=== PATIENT | male | born 1995 | race African-American/Black ===

== ENCOUNTER 2020-01-10 08:27 | Emergency (ER) | payer OTHER ==
[~2020-01-10] VITALS: Ht 180.3 cm; Wt 104.5 kg
[2020-01-10] MEDS ORDERED: NEXI40CA PO (08:45)
--- NOTE | 2020-01-10 09:27 | REP ---
Clinical: Acute chest pain . Comparison: None . Findings: The mediastinum and cardiac silhouette are stable and within normal limits for portable technique. The lung cervantes are clear without acute consolidation, effusion, or pneumothorax. Skeletal structures are intact. Impression: No acute cardiopulmonary process appreciated. Electronically Signed by Rock Adkins MD 01/10/2020 09:18 A
[2020-01-10 09:29] LABS: BASO # 0.1 10^3/uL (0.0-0.2); BASO % 0.6 % (0.0-1.0); EOS % 0.2 % (0.0-3.0); HEMATOCRIT 44.6 % (42.0-52.0); HEMOGLOBIN 15.3 g/dl (13.5-17.5); LYMPH # 2.1 10^3/uL (1.5-5.0); LYMPH % 21.9 % (24.0-44.0); MEAN CORPUSCULAR HEMOGLOBIN 27.8 pg (27.0-33.0); MEAN CORPUSCULAR HGB CONC 34.3 g/dl (32.0-36.5); MEAN CORPUSCULAR VOLUME 81.1 fl (80.0-96.0); MONO # 1.3 10^3/uL (0.0-0.8); MONO % 13.1 % (0.0-5.0); NEUTROPHILS # 6.2 10^3/uL (1.5-8.5); NEUTROPHILS % 63.9 % (36.0-66.0); PLATELET COUNT, AUTOMATED 269 10^3/uL (150-450); WHITE BLOOD COUNT 9.7 10^3/uL (4.0-10.0)
[2020-01-10 10:09] LABS: ALBUMIN 4.1 GM/DL (3.2-5.2); ALT/SGPT 35 U/L (12-78); BILIRUBIN,DIRECT 0.1 MG/DL (0.0-0.2); BILIRUBIN,TOTAL 0.4 MG/DL (0.2-1.0); BLOOD UREA NITROGEN 7 MG/DL (7-18); CALCIUM LEVEL 8.6 MG/DL (8.5-10.1); CARBON DIOXIDE LEVEL 27 MEQ/L (21-32); CHLORIDE LEVEL 112 MEQ/L (98-107); CK-MB VALUE MASS 3.7 NG/ML (<3.6); CPK CREATINE PHOSPHOKINASE 765 U/L (39-308); CREATININE FOR GFR 1.11 MG/DL (0.70-1.30); ETHYL ALCOHOL (ETHANOL) 0.242 % (0.000-0.010); FREE T4 1.14 NG/DL (0.76-1.46); GLOMERULAR FILTRATION RATE > 60.0 (>60); GLUCOSE, FASTING 102 MG/DL (70-100); LIPASE 141 U/L (73-393); MB/CK RELATIVE INDEX 0.48 (< OR =4); POTASSIUM SERUM 3.8 MEQ/L (3.5-5.1); SODIUM LEVEL 145 MEQ/L (136-145); TOTAL PROTEIN 7.4 GM/DL (6.4-8.2); TROPONIN I < 0.02 NG/ML (< 0.10)
[2020-01-10 11:46] VITALS: BP 152/91
--- NOTE | 2020-01-11 07:09 | ECGEPIP ---
[facility] - ED Test Date: 2020-01-10 Pat Name: HENNA RADFORD Department: Room: - Gender: Male Immigration Manager: jarod perez : 1995 Requested By: Saud Carlson Order Number: [id number] Reading MD: Prasanth Rivera Measurements Intervals [place] Rate: 84 P: 49 WV: 177 QRS: 47 QRSD: 90 T: -19 QT: 345 QTc: 408 Interpretive Statements SINUS RHYTHM Nonspecific T wave abnormality Comparison tracing not on file Electronically Signed on 01-11-2020 7:09:40 EDT by Prasanth Rivera
== END 2020-01-10 11:55 | disposition home or self-care (01) ==
LOC: M ED 08:27 → EDBD 08:27 → M ED 11:55
DX: F10.129 Alcohol abuse with intoxication, unspecified (principal); R06.02 Shortness of breath
CPT/HCPCS: 36415; 71045; 80048; 80076; 82550; 82553; 83690; 84439; 84443; 84484; 85025; 93005; 93041; 94760; 99285; G0480

== ENCOUNTER 2020-07-24 18:17 | Emergency (ER) | payer OTHER ==
[~2020-07-24] VITALS: Ht 177.8 cm; Wt 104.5 kg
[~2020-07-24 18:17] MED LIST: NEXI40CA PO
--- OUTSIDE RECORDS SUMMARY | 2020-07-24 18:22 | CCD ---
Author Author [facility] Organization [facility] Address Unknown Phone Unavailable Care Team Providers [facility] Recruiting Coordinator Name Role Phone NAIDA, Sherin CABRERA MD Unavailable Unavailable ANTECOL, Sherin CABRERA MD Unavailable Unavailable ANTECOL, Sherin CABRERA MD Unavailable Unavailable ANTECOL, Sherin CABRERA MD Unavailable Unavailable ANTECOL, Sherin CABRERA MD Unavailable Unavailable ANTECOL, Sherin CABRERA MD Unavailable Unavailable ANTECOL, Sherin CABRERA MD Unavailable Unavailable ANTECOL, Sherin CABRERA MD Unavailable Unavailable ANTECOL, Sherin CABRERA MD Unavailable Unavailable ANTECOL, Sherin CABRERA MD Unavailable Unavailable ANTECOL, Sherin CABRERA MD Unavailable Unavailable ANTECOL, Sherin CABRERA MD Unavailable Unavailable ANTECOL, Sherin CABRERA MD Unavailable Unavailable ANTECOL, Sherin CABRERA MD Unavailable Unavailable ANTECOL, Sherin CABRERA MD Unavailable Unavailable ANTECOL, Sherin CABRERA MD Unavailable Unavailable ANTECOL, Sherin CABRERA MD Unavailable Unavailable ANTECOL, Sherin CABRERA MD Unavailable Unavailable ANTECOL, Sherin CABRERA MD Unavailable Unavailable ANTECOL, Sherin CABRERA MD Unavailable Unavailable ANTECOL, Sherin CABRERA MD Unavailable Unavailable ANTECOL, Sherin CABRERA MD Unavailable Unavailable ANTECOL, Sherin CABRERA MD Unavailable Unavailable ANTECOL, Sherin CABRERA MD Unavailable Unavailable ANTECOLSherin MD Unavailable Unavailable ANTECOL, Sherin CABRERA MD Unavailable Unavailable ANTECOLSherin MD Unavailable Unavailable ANTECOL, Sherin CABRERA MD Unavailable Unavailable ANTECOL, Sherin CABRERA MD Unavailable Unavailable ANTECOL, Sherin CABRERA MD Unavailable Unavailable ANTECOL, Sherin CABRERA MD Unavailable Unavailable ANTECOL, Sherin CABRERA MD Unavailable Unavailable ANTECOL, Sherin CABRERA MD Unavailable Unavailable ANTECOL, Sherin CABRERA MD Unavailable Unavailable ANTECOL, Sherin CABRERA MD Unavailable Unavailable ANTECOL, Sherin CABRERA MD Unavailable Unavailable ANTECOL, Sherin CABRERA MD Unavailable Unavailable ANTECOL, Sherin CABRERA MD Unavailable Unavailable ANTECOL, Sherin CABRERA MD Unavailable Unavailable ANTECOL, Sherin CABRERA MD Unavailable Unavailable ANTECOL, Sherin CABRERA MD Unavailable Unavailable ANTECOL, Sherin CABRERA MD Unavailable Unavailable ANTECOL, Sherin CABRERA MD Unavailable Unavailable ANTECOL, Sherin CABRERA MD Unavailable Unavailable ANTECOL, Sherin CABRERA MD Unavailable Unavailable ANTECOL, Sherin CABRERA MD Unavailable Unavailable ANTECOL, Sherin CABRERA MD Unavailable Unavailable ANTECOL, Sherin CABRERA MD Unavailable Unavailable ANTECOL, Sherin CABRERA MD Unavailable Unavailable ANTECOL, Sherin CABRERA MD Unavailable Unavailable ANTECOL, Sherin CABRERA MD Unavailable Unavailable ANTECOL, Sherin CABRERA MD Unavailable Unavailable ANTECOL, Sherin CABRERA MD Unavailable Unavailable ANTECOL, Sherin CABRERA MD Unavailable Unavailable ANTECOL, Sherin CABRERA MD Unavailable Unavailable SARSFIELD, Crystal SALGADO MD Unavailable Unavailable SARSFIELD, Crystal SALGADO MD Unavailable Unavailable SARSFIELD, Crystal SALGADO MD Unavailable Unavailable SARSFIELD, Crystal SALGADO MD Unavailable Unavailable SARSFIELD, Crystal SALGADO MD Unavailable Unavailable SARSFIELD, Crystal SALGADO MD Unavailable Unavailable SARSFIELD, Crystal SALGADO MD Unavailable Unavailable SARSFIELD, Crystal SALGADO MD Unavailable Unavailable SARSFIELD, Crystal SALGADO MD Unavailable Unavailable ALIASES , DEFAULT / GENERIC / UNKNOWN PROVIDER * Unavailable Unavailable ALIASES , DEFAULT / GENERIC / UNKNOWN PROVIDER * Unavailable Unavailable ALIASES , DEFAULT / GENERIC / UNKNOWN PROVIDER * Unavailable Unavailable ALIASES , DEFAULT / GENERIC / UNKNOWN PROVIDER * Unavailable Unavailable ALIASES , DEFAULT / GENERIC / UNKNOWN PROVIDER * Unavailable Unavailable ALIASES , DEFAULT / GENERIC / UNKNOWN PROVIDER * Unavailable Unavailable ALIASES , DEFAULT / GENERIC / UNKNOWN PROVIDER * Unavailable Unavailable ALIASES , DEFAULT / GENERIC / UNKNOWN PROVIDER * Unavailable Unavailable ALIASES , DEFAULT / GENERIC / UNKNOWN PROVIDER * Unavailable Unavailable ALIASES , DEFAULT / GENERIC / UNKNOWN PROVIDER * Unavailable Unavailable ALIASES , DEFAULT / GENERIC / UNKNOWN PROVIDER * Unavailable Unavailable ALIASES , DEFAULT / GENERIC / UNKNOWN PROVIDER * Unavailable Unavailable ALIASES , DEFAULT / GENERIC / UNKNOWN PROVIDER * Unavailable Unavailable ALIASES , DEFAULT / GENERIC / UNKNOWN PROVIDER * Unavailable Unavailable ALIASES , DEFAULT / GENERIC / UNKNOWN PROVIDER * Unavailable Unavailable ALIASES , DEFAULT / GENERIC / UNKNOWN PROVIDER * Unavailable Unavailable ALIASES , DEFAULT / GENERIC / UNKNOWN PROVIDER * Unavailable Unavailable ALIASES , DEFAULT / GENERIC / UNKNOWN PROVIDER * Unavailable Unavailable ALIASES , DEFAULT / GENERIC / UNKNOWN PROVIDER * Unavailable Unavailable ALIASES , DEFAULT / GENERIC / UNKNOWN PROVIDER * Unavailable Unavailable ALIASES , DEFAULT / GENERIC / UNKNOWN PROVIDER * Unavailable Unavailable ALIASES , DEFAULT / GENERIC / UNKNOWN PROVIDER * Unavailable Unavailable ALIASES , DEFAULT / GENERIC / UNKNOWN PROVIDER * Unavailable Unavailable ALIASES , DEFAULT / GENERIC / UNKNOWN PROVIDER * Unavailable Unavailable ALIASES , DEFAULT / GENERIC / UNKNOWN PROVIDER * Unavailable Unavailable ALIASES , DEFAULT / GENERIC / UNKNOWN PROVIDER * Unavailable Unavailable ALIASES , DEFAULT / GENERIC / UNKNOWN PROVIDER * Unavailable Unavailable ALIASES , DEFAULT / GENERIC / UNKNOWN PROVIDER * Unavailable Unavailable ALIASES , DEFAULT / GENERIC / UNKNOWN PROVIDER * Unavailable Unavailable ALIASES , DEFAULT / GENERIC / UNKNOWN PROVIDER * Unavailable Unavailable ALIASES , DEFAULT / GENERIC / UNKNOWN PROVIDER * Unavailable Unavailable ALIASES , DEFAULT / GENERIC / UNKNOWN PROVIDER * Unavailable Unavailable ALIASES , DEFAULT / GENERIC / UNKNOWN PROVIDER * Unavailable Unavailable ALIASES , DEFAULT / GENERIC / UNKNOWN PROVIDER * Unavailable Unavailable ALIASES , DEFAULT / GENERIC / UNKNOWN PROVIDER * Unavailable Unavailable ALIASES , DEFAULT / GENERIC / UNKNOWN PROVIDER * Unavailable Unavailable ALIASES , DEFAULT / GENERIC / UNKNOWN PROVIDER * Unavailable Unavailable ALIASES , DEFAULT / GENERIC / UNKNOWN PROVIDER * Unavailable Unavailable ALIASES , DEFAULT / GENERIC / UNKNOWN PROVIDER * Unavailable Unavailable ALIASES , DEFAULT / GENERIC / UNKNOWN PROVIDER * Unavailable Unavailable ALIASES , DEFAULT / GENERIC / UNKNOWN PROVIDER * Unavailable Unavailable ALIASES , DEFAULT / GENERIC / UNKNOWN PROVIDER * Unavailable Unavailable ALIASES , DEFAULT / GENERIC / UNKNOWN PROVIDER * Unavailable Unavailable ALIASES , DEFAULT / GENERIC / UNKNOWN PROVIDER * Unavailable Unavailable ALIASES , DEFAULT / GENERIC / UNKNOWN PROVIDER * Unavailable Unavailable ALIASES , DEFAULT / GENERIC / UNKNOWN PROVIDER * Unavailable Unavailable HALFMAN, HENRI Unavailable Unavailable HALFMAN, HENRI Unavailable Unavailable HALFMAN, HENRI Unavailable Unavailable HALFMAN, HENRI Unavailable Unavailable Re-disclosure Warning The records that you are about to access may contain information from federally-assisted alcohol or drug abuse programs. If such information is present, then the following federally mandated warning applies: This information has been disclosed to you from records protected by federal confidentiality rules (42 CFR part 2). The federal rules prohibit you from making any further disclosure of this information unless further disclosure is expressly permitted by the written consent of the person to whom it pertains or as otherwise permitted by 42 CFR part 2. A general authorization for the release of medical or other information is NOT sufficient for this purpose. The Federal rules restrict any use of the information to criminally investigate or prosecute any alcohol or drug abuse patient.The records that you are about to access may contain highly sensitive health information, the redisclosure of which is protected by Article 27-F of the [facility] Public Health law. If you continue you may have access to information: Regarding HIV / AIDS; Provided by facilities licensed or operated by the [facility] Office of Mental Health; or Provided by the [facility] Office for People With Developmental Disabilities. If such information is present, then the following [facility] mandated warning applies: This information has been disclosed to you from confidential records which are protected by state law. State law prohibits you from making any further disclosure of this information without the specific written consent of the person to whom it pertains, or as otherwise permitted by law. Any unauthorized further disclosure in violation of state law may result in a fine or group home sentence or both. A general authorization for the release of medical or other information is NOT sufficient authorization for further disc losure. Allergies and Adverse Reactions Type Description Substance Reaction Status Data Source(s ) Drug Class NO KNOWN ALLERGIES NO KNOWN ALLERGIES [facility] Family History Family Member Name Family Member Gender Family Member Status Date o f Status Description Data Source(s) Unknown Female Problem [facility] ([facility]) Encounters Encounter Providers Location Date Indications Data Source(s ) Outpatient Attender: RICK PASCAL MD Main Office 02/16/2020 08:30:00 AM EDT [facility] ([facility]) Emergency Attender: DEFAULT / GENE POLO / UNKNOWN PROVIDER ALIASES Attender: DAMIAN LUIS MDReferrer: DAMIAN LUIS MD [id number] 01/02/2020 09:40:17 PM EDT - 01/03/2020 12:54:00 AM EDT Palpitations [facility] Palpitations Patient discharged. Emergency Attender: HENRI CHANDLERReferrer: HENRI RICO [id number]-GEM 09/06/2019 09:32:43 PM EDT - 09/07/2019 12:49:00 AM EDT Cough [facility] Cough Patient discharged. Insurance Providers Payer name Policy type / Coverage type Policy ID Covered green party ID Covered green party's relationship to macario Policy Macario Plan Information [facility] HUMANA [id number] O UNAVAILABLE UNAVAILA BLE U [id number] Self [id number] EXCELLUS I [id number] Self [id number] BCBS Child Health Plus Health Maintenance Organization (HMO) Family Dependent [facility] Self [id number] Problems, Conditions, and Diagnoses Code Display Name Description Problem Type Effective Dates Data Source(s) 858448499 Counseling about tobacco use Counseling about tobacco use Problem 02/16/2020 12:00:00 AM EDT [facility] [id number] Tobacco user Tobacco user Problem 02/16/2020 12:00:00 A M EDT [facility]) [id number] Palpitations Palpitations Problem 02/16/2020 12:00:00 A M EDT [facility]) [id number] Elevated blood-pressure reading without diagnosis of hypertension Elevated blood-pressure reading without diagnosis of hypertension Problem 02/16/2020 12:00:00 AM EDT [facility]) [id number] Dietary management surveillance Dietary manageme nt surveillance Problem 02/16/2020 12:00:00 AM EDT [facility] [id number] Obesity Obesity Problem 02/16/2020 12:00:00 AM ED T [facility]) [id number] Chest pain Chest pain Problem 02/16/2020 12:00:00 AM ED T [facility]) R00.2 Palpitations Palpitations Diagnosis 01/02/2020 09:40:[address] [facility] card eval card eval Diagnosis 01/02/2020 09:40:17 PM ED [facility] R05 Cough Cough Diagnosis 09/06/2019 09:32:43 PM ED [facility] Fever Fever Diagnosis 09/06/2019 09:32:43 PM ED [facility] Surgeries/Procedures Procedure Description Date Indications Data Source(s) XTRNL PT ACTIVATED ECG RECORD MONITOR 30 DAYS 03/10/20 20 12:00:00 AM EDT [facility] XTRNL PT ACTIVTD ECG DWNLD 30 DAYS PHYS R&I 03/10/2020 12:00:00 AM EDT [facility]) Ambulatory Blood Pressure Monitoring;Recording,Scanning,Inte r,RPT 03/01/2020 12:00:00 AM EDT [facility] ECG ROUTINE ECG W/LEAST 12 LDS W/I&R 02/16/2020 12:00: 00 AM EDT [facility]) [facility]H COVID-19 PCR COVID-19 PCR Routine 01/02/2020 11:31 PM EDT 01/03/2020 03:31:00 AM EDT [facility] TROPONIN QUANTITATIVE POCT ISTAT TROPONIN Routine 01/02/2020 11:30 PM EDT 01/03/2020 03:30:00 AM EDT [facility] XR CHEST FRONTAL ONLY 87497 XR CHEST FRONTAL ONLY 92992 STAT 01/02/2020 11:01 PM EDT 01/03/2020 03:01:00 AM EDT [facility] COMPREHENSIVE METABOLIC PANEL METABOLIC PANEL, COMPREHENSIVE ST AT 01/02/2020 10:34 PM EDT 01/03/2020 02:34:00 AM EDT [facility] BLOOD COUNT COMPLETE AUTO&AUTO DIFRNTL WBC COUNT CBC AND DIFFER ENTIAL STAT 01/02/2020 10:34 PM EDT 01/03/2020 02:34:00 AM EDT [facility] THYROID STIMULATING HORMONE TSH TSH STAT 01/02/2020 10:34 PM EDT 01/03/2020 02:34:00 AM EDT [facility] EKG ED PHYSICIAN INTERPRETATION EKG ED PHYSICIAN INTERPRETATION Routine 01/02/2020 9:40 PM EDT 01/03/2020 01:40:56 AM EDT [facility] EKG 12-LEAD - CMAXX REPORT EKG 12-LEAD - CMAXX REPORT 01/02/2020 9:17 PM EDT 01/03/2020 01:17:48 AM EDT [facility] EKG 12-LEAD EKG 12-LEAD STAT 01/02/2020 9:17 PM EDT 01/03/2020 01:17:48 AM EDT [facility] EKG ED PHYSICIAN INTERPRETATION EKG ED PHYSICIAN INTERPRETATION Routine 09/06/2019 11:00 PM EDT 09/07/2019 03:00:03 AM EDT [facility] XR CHEST FRONTAL ONLY 86218 XR CHEST FRONTAL ONLY 97510 STAT 09/06/2019 10:05 PM EDT 09/07/2019 02:05:43 AM EDT [facility] EKG 12-LEAD - CMAXX REPORT EKG 12-LEAD - CMAXX REPORT 09/06/2019 9:59 PM EDT 09/07/2019 01:59:22 AM EDT [facility] EKG 12-LEAD EKG 12-LEAD STAT 09/06/2019 9:59 PM EDT 09/07/2019 01:59:[address] [facility] BLOOD COUNT COMPLETE AUTO&AUTO DIFRNTL WBC COUNT CBC AND DIFFER ENTIAL STAT 09/06/2019 9:53 PM EDT 09/07/2019 01:53:[address] [facility] TROPONIN QUANTITATIVE TROPONIN T STAT 09/06/2019 9:53 PM EDT 09/07/2019 01:53:00 AM EDT [facility] BASIC METABOLIC PANEL CALCIUM TOTAL BASIC METABOLIC PANEL STAT 09/06/2019 9:53 PM EDT 09/07/2019 01:53:00 AM EDT [facility] Results ID Date Data Source [id number] 01/18/2020 03:58:00 PM EDT [facility] ([facility] Name Value Range Interpretation Code Description Data Clarice rce(s) Supporting Document(s) White Blood Count 7.10 [facility] Platelets 274 [facility] Red Blood Count 6.07 [facility] Hemoglobin 17.0 [facility] ([facility]) Hematocrit 51.3 [facility] ([facility]) ID Date Data Source [id number] 01/18/2020 03:58:00 PM EDT [facility] Name Value Range Interpretation Code Description Data Clarcie rce(s) Supporting Document(s) Cholesterol 198 0-200 [facility] ([facility]) Triglycerides 48 40-200 [facility] HDL 71 40-92 [facility] Cholesterol in LDL [Mass/volume] in Serum or Plasma by calculation 10 5.0 [facility] ([facility]) Chol/HDL Ratio 2.79 [facility] ([facility]) ID Date Data Source [id number] 01/18/2020 03:58:00 PM EDT [facility] Name Value Range Interpretation Code Description Data Clarice rce(s) Supporting Document(s) Thyroid Stimulating Hormone 2.250 [facility] ([facility]) ID Date Data Source [id number] 01/18/2020 03:58:00 PM EDT [facility] Name Value Range Interpretation Code Description Data Clarice rce(s) Supporting Document(s) Albumin [Mass/volume] in Serum or Plasma 4.4 [facility] ([facility]) Carbon dioxide, total [Moles/volume] in Serum or Plasma 24.4 [facility] ([facility]) Calcium [Mass/volume] in Serum or Plasma 9.7 [facility] ([facility]) Alanine aminotransferase [Enzymatic activity/volume] in Serum or Pl asma 25 [facility] ([facility]) Chloride [Moles/volume] in Serum or Plasma 104 [facility] ([facility]) Alkaline phosphatase [Enzymatic activity/volume] in Serum or Plasma 5 3 [facility] ([facility]) Potassium [Moles/volume] in Serum or Plasma 4.50 [facility] ([facility]) Protein [Mass/volume] in Serum or Plasma 7.5 [facility] ([facility]) Sodium 141 [facility] Aspartate aminotransferase [Enzymatic activity/volume] in Serum or Plasma 15 [facility] ([facility]) Creatinine For GFR 1.36 [facility] Urea nitrogen [Mass/volume] in Serum or Plasma 13 [facility] ([facility]) Glucose 97 70-105 [facility]) ID Date Data Source [id number] 01/04/2020 09:14:22 AM EDT [facility] Name Value Range Interpretation Code Description Data Clarice rce(s) Supporting Document(s) ED Provider Note [facility] [id number]/[id number] lbm [file] [id number] ID Date Data Source [id number] 01/03/2020 08:46:56 AM EDT [facility] Name Value Range Interpretation Code Description Data Clarice rce(s) Supporting Document(s) [facility] EZIFIz8fEjTULbWhh8EtFsZgHGTpBL5hojt5F5J0bSRtR4OzbJXqt6kvQ4VoI5ZwCZLqDLUBIE6LcWDp jb2 [file] vR0cXv+K2hP9MEV/5z9pcP5PUn6P6rm++X0Y/AMX79f3w/v/lT3+dzd21kqu106a+vytR3+heidy/nTLX3 T+DJJzD1le9Ntq1pV72+pBem41YZG3yJkz00YrpeT2 z/0hDTro5QxcK9bb3565Soz7oyaf1WkOXncnu8QTsr+af/FHxxd/DUST COLLECTOR ATTENDANT/kbW134TwvqZlaH/OS1rU01BAa P2m34puuu2+tSPNSjvyuI7/vmG791b103/sFAr24rTkjnalYEouE7/BHjr2d8uDq3H3HTrjdK32hrPE4 nW/0/iY2yJyUwJqFcIyVJKbjAgc5Nz94fiCZ2PEArD FNOq43SVHa7QBABbuWQTqFNEzLMPqQUZbA2ICfhV/NTdd7u+l6b8d+Ncd+Ncd+Ncd+Ncd+Ncd+NUd+15 UcipD0IwgpD67Xjm284Gwo+9Uc+2H6KDrA45m2T24a3+Z7blBOAsfDJ0Z7j2FE3Twiy2hiqnJMawT8sB 901/lGv/aX8a3gxvMpFUlUFD46mXsgm+Z3y3jAiTdP FIbyZphVOmtH5Wtoa735G0KC0rM3OCqUuYs+gWm33oVz5fubS23izkzmjOwirJnegSxf5MsCKA9ioz/V yngfjhUwp0C5F309+jmIjvz76ieCP13Wjk670Mre+W5BodcEkWB0clOWhij+B0APCecGVdqHPehQ2+cA S26M6IrEWiq6RqtP5ZI6gkatRMByGtxixFULOSdJQs BIsiJOOCJJ2Wa00WaVf93jQKP3Wh/rW/OYvjtYBzMwAxtgA+dCi3fWMZNKVF71tViC7oz8HmIBw650wM r2zm5P2sAc/6RbKnCdl16/Dnpqeoz/1vR4/x7tkejxM9dqksfO8dRTZvRv9BMoWDREIZvoTrvqKaBjJn wVRysX3n66q3wRRAmKNaqQQ0dr/ExDYQ5NbDltYQmP ZKaOVjh6yR5KALWM3mu42U57yTdox2h5nkKHWTUYio0K3LwMS6d2FhsQsu/YM/bp4ke3wd6JIlTykqbv +7FwNd2P7NgzT4oZIGudlkpJDp1T8+ZWIZ9zG8v6+wnWe2nTPjdkB8mIo0AP0wfuS7xvl4fKR1bdIqld M7navwzr7kwWwf0Zc5NsnzaoPsv5zsgqtf6XN1719L [file] A65qYcR8T3k52wuh87u/7665+v3ZsvO/wzGZ/99L0y66nu+x9+/e0/vf36+x8+vvv4/h6v93897wt6w7 9+/e1Xv3n/1PbdCb2Ai56/+ObdF79+z6e62S0gT4196re4X+8/fvjq/W/jne2OhJ3j2h1vI8l4n99liH Cx3nX5y/7h7cOX//Txy2/e/vGrj1++Jefdh+R99e6v /PH9Yr7/+Wiigx9l+/eff/Wrrz5/+/j2j+9+8/7t3S+//e51g1+/7vSv/KGUjPtXb+8///uf/mwV57p/ 9o9fvv/97yQQr3j05j5BzElzZ0x26roa7a/+lrmQweHCEpt53Y64jL1j5S7+hPr7b+/asXqwg6pNd5g3 7d+/f93uD2+/+v3G557kT/2yzy9zp/n5n//0r7//yx 9//Je3//Yfb7/71ontB6f9/+3ei7958to/brog5nxfjj/67Z//i8x//pu3P//ysroG8UjvpnFm6e1w4d bum//5LSEp9d0jjL/84y/+kXeWSTmS9pC/5KbGsj9Ltke932j/DwWwCK8q/l75kgH2TzD4y4XmdmkW1t EM9+Mc2bAHCkW09zbzpM6uX3IX5mNm/+DDj//641/+ ufG75jubY+8+fvzy/T++/fDuww+/lntzY14ypg/nL4+uf3n/gWw0C8Wcg1hw+xnIv/fyar9APe2JsgaH 0hjQc46481//0qctpxewN53n0ijz8M5H80k/+zYh2rMb9SOvU8po3Dmp1y0/p3//8S//57d/+Oob16e1 7VG16ily/tOzb+jrKfiy6v//+3Xvv//zn356+lWW7i ndw6V26V91/MU/jGkgH3xmRgtm/dP833BjfcrpIIIbKU4g6w+iXjH4Cy/ftZ/e1ca+//xCj604++3//f Hf/fSQmb7krV+/+/7Dz+9KIa85+HpT/cdf/vlvfvLr/Ry++e0fPnm+8Qn6yz/89nf/6yd/s8J64Fh/+u nfPjPGrj/8t//8t4/8Xsj6y3/87P03P/edJ7nUv//8 i63dYtS71kQOtxZj+vF3/+NPv//d73/7p89+5jX22443p39FgaUlg/x+tQDJ3//bv7+V7F102heP54/4 +Pb9u6++xY/j4nh1E1C+fv/b//7jm7z9+V/eaKIyOoqQrL92y/+u3L5m0f7TP31b/76o6vHFE+27D1+8 //VgxJ43KX9eogF8td1/Enuj334ucgimgLc95r7Yc3 uRxVbrbnXdlAGnAU1GOZ4rn0SqXgP0CIKkf0LgDKbuMVx4yIIsDWentuOuu0PhjbbyP3Nyl0JuAlRkYJ XuLqBrPkd7PPTcOiA7pEPgCvDkULZyD2JeOUHjCxV4SnRpKPKPSJ5KPTQdcpDaTqVkRXP+JnScTM9elp izWVCmf2BrUVzsFOvoWAEoQ4R3hQuxRBWbL4MgcY19 MOAwG6PouqG9JCU1TDYrMpJnJTKmaVErFEPmZAL+VmQwOZ7zmwvbMFGni6EfXOyoQQW3nJ2aUVdVKETZ XKbLKCrrRcC2i84iofHMRYRiBPDcOI3JnzRylSkibsNnbSVoZRF7XjYxMAP4LEEoBXG4OENMVMYiVAMw PEOgODDpN1TnmFooGZeAZLTXZVuIERqzJfTyq9T6PW PhzwAVBT3NYNKRGyxbLTMGNoRzJojjCGBhNXLaZ5LqznDhpLGnIIPMSNmcZjkjHVMryS7tfFmgZ8CrPH Q8z2SgDG0DQ5SnPQJyALEYUBY8d0InSMUismrxfbzoMsUgMMWwYVVcZEAvRA0Fwu9cwXUjjvLpZRRZMZ ptNiqbFO2qsUledxczM4KilQVmKBB+EaWfYR2okw4+ YuEvKVNoEbj2AXXfLAtpNJKxALWwTEJqQ2sjAUFgBnEjIYUpTyWlDS9Xs9HygTSbUp0zgmKkLmgDvZSh QinjJBWeBSLpMDUhJaYITMMqCEKzIEOyFJN4TJBtJYNkQDljAFRuOVDaHTE9PUWkFBLhKP9zLsPnHMLr WqO5GUBeLFZwDLTauyCYLEEkHTV6Txn8ETLfSMAzWX UoWZrhRNHgBQInTPCeXUA0XVC5GYVpAvFuCSYhCCKwPDJyMAGbTGDddoZPXDMaTLRwCCB0SSSeJOKzEZ VxBVfwMYXjUMTzYXovZOMqQANpIO2qSjQhFFCcFAUkEDpjTANbTWGuovAQNZBiKOBkFZWqPQLzLUCkXG IxKCjsUJFfLMYiWSIiLEZwPMUjST0rScTvSBKiAYZ5 KYYlFXPgROBhraNTOFFsYELbXYy2GUThOOYkPOHmARinVGUzXVBsHKC2MWVwQBAtHW0nQdWtESStYOG9 BoKkPKOjKOCpyrBJVXRgKLLwSHR3NpLaOGDeBAGlOQpoTSVoOHAzXDjyVMJeIJXfRE0sDjEsEDZhUTXl OTcgMDAwMDAgbiAKMDAwMDAwMTQwNiAwMDAwMCBuIA bsAWJwSHHuNIvvPMIuWDXyFW6eRyYtGBSeVKT0VZjeVTGzIBEwdmKSRYEoJUDsGWcjUBQhAJMzRKCpMZ pwECYhMKEgBLE9OEMtXUCzEJ9hCjNwUMSoKQJiICLyIvJ7QhDdBeENwUJbuXmunbu0JZmtV1s2DZIsTU mwNG4nvdZoSSTaPjwsKt6ppFK8SRCmRnsYFe7Ff0VzbqA6stBwRoAjZFscGgPsYT3N ID Date Data Source [id number] 01/03/2020 01:00:35 AM EDT [facility] XXX-Imp : NoneMicroorganism XXX Cult : 2019 nCoV Real-Time RT-PCR: NOT DETECTEDTest performed using the [employer] Xpert Xpress SARS-CoV-2 assay. This test is only for use under the Food and Drug Administration's Emergency Use Authorization. Additional information is available on the following FDA websites for health care providers and patients. https://www.fda.gov/media/431481/download , https://www.fda.gov/media/451133/download Name Value Range Interpretation Code Description Data Clarice rce(s) Supporting Document(s) ID Date Data Source [id number] 01/02/2020 11:31:00 PM [facility] XXX-Imp : NoneMicroorganism XXX Cult : 2019 nCoV Real-Time RT-PCR: NOT DETECTEDTest performed using the [employer] Xpert Xpress SARS-CoV-2 assay. This test is only for use under the Food and Drug Administration's Emergency Use Authorization. Additional information is available on the following FDA websites for health care providers and patients. https://www.fda.gov/media/707629/download , https://www.Pixtr.gov/BizeeBee/136141/download Name Value Range Interpretation Code Description Data Clarice rce(s) Supporting Document(s) Microorganism identified in Unspecified specimen by [facility] This lab was ordered by [facility] and reported by [facility]. ID Date Data Source [id number] 01/02/2020 11:30:36 PM [facility] XR CHEST FRONTAL ONLY [id number] RESULTI nterpreted by:ASHLEY GonzalesROCEDURE INFORMATION: Exam: XR Chest, 1 View Exam date and time: 01/02/20 (10:57pm) Age: 24 years old Clinical indication: SOB TECHNIQUE: Imaging protocol: Portable CXRViews: 1 view (2 films) COMPARISON: Portable CXR of 09/06/19 FINDINGS: Lungs: Unremarkable. No consolidation. Pleural space: Unremarkable. No pleural effusions. No pneumothorax. Heart/Mediastinum: Unremarkable. No cardiomegaly. Bones/joints: Unremarkable. IMPRESSION: No acute findings. The lung cervantes remain clear.THIS DOCUMENT HAS BEEN ELECTRONICALLY SIGNED BY THERESA LATIF MDThis document has been electronically signed by Theresa Latif MD on 01/02/2020 11:30 PM Name Value Range Interpretation Code Description Data Clarice rce(s) Supporting Document(s) ID Date Data Source [id number] 01/02/2020 11:45:30 PM [facility] Name Value Range Interpretation Code Description Data Clarice rce(s) Supporting Document(s) Troponin I.cardiac [Mass/volume] in Blood 0.00 ng/mL 0.00-0.08 [facility] ID Date Data Source [id number] 01/02/2020 11:34:49 PM [facility] Name Value Range Interpretation Code Description Data Clarice rce(s) Supporting Document(s) Leukocytes [#/volume] in Blood by Automated count 11.1 10*3/uL 4-10 H [facility] Erythrocytes [#/volume] in Blood by Automated count 5.45 10*6/uL 4.6- 6.1 [facility] Hemoglobin [Mass/volume] in Blood 15.0 g/dL 13.5-18 [facility] Hematocrit [Volume Fraction] of Blood by Automated count 45.7 % 4 1-53 [facility] Erythrocyte mean corpuscular volume [Entitic volume] by Auto mated count 83.8 fL 80-96 [facility] Erythrocyte mean corpuscular hemoglobin [Entitic mass] by Automated count 27.5 pg 27-33 [facility] Erythrocyte mean corpuscular hemoglobin concentration [Mass/volume] by Automated count 32.8 g/dL 32.0-36.0 [facility] distribution width [Ratio] by Automated count 14.0 % 11.5-14.5 [facility] Platelets [#/volume] in Blood by Automated count 241 10*3/uL 150-400 [facility] Differential cell count method - Blood [facility] Neutrophils/100 leukocytes in Blood by Automated count 73 % [facility] Lymphocytes/100 leukocytes in Blood by Automated count 16 % [facility] Monocytes/100 leukocytes in Blood by Automated count 10 % [facility] Eosinophils/100 leukocytes in Blood by Automated count 0 % [facility] Basophils/100 leukocytes in Blood by Automated count 1 % [facility] Neutrophils [#/volume] in Blood by Automated count 8.13 10*3/uL 1.8-7 .0 H [facility] Lymphocytes [#/volume] in Blood by Automated count 1.79 10*3/uL 1.2-4 .0 [facility] Monocytes [#/volume] in Blood by Automated count 1.07 10*3/uL 0-0.8 H [facility] Eosinophils [#/volume] in Blood by Automated count 0.02 10*3/uL 0-0.5 [facility] Basophils [#/volume] in Blood by Automated count 0.07 10*3/uL 0-0.2 [facility] Nucleated erythrocytes/100 leukocytes [Ratio] in Blood by Automated count 0 /100{WBCs} 0-0 [facility] ID Date Data Source [id number] 01/02/2020 11:56:59 PM EDT [facility] Name Value Range Interpretation Code Description Data Clarice rce(s) Supporting Document(s) Albumin [Mass/volume] in Serum or Plasma by Bromocresol green (BCG) dye binding method 4.3 g/dL 3.5-5.2 [facility] Bilirubin.total [Mass/volume] in Serum or Plasma 0.5 mg/dL <1.2 [facility] Calcium [Mass/volume] in Serum or Plasma 8.7 mg/dL 8.6-10.0 [facility] Chloride [Moles/volume] in Serum or Plasma 106 mmol/L 98-107 [facility] Creatinine [Mass/volume] in Serum or Plasma 1.15 mg/dL 0.70-1.20 [facility] Glucose [Mass/volume] in Serum or Plasma 91 mg/dL 70-140 [facility] Alkaline phosphatase [Enzymatic activity/volume] in Serum or Plasma 58 U/L 40-129 [facility] Potassium [Moles/volume] in Serum or Plasma 3.4 mmol/L 3.4-5.1 [facility] Protein [Mass/volume] in Serum or Plasma 6.5 g/dL 6.4-8.3 [facility] Sodium [Moles/volume] in Serum or Plasma 139 mmol/L 136-145 [facility] Aspartate aminotransferase [Enzymatic activity/volume] in Serum or Plasma 26 U/L <40 [facility] Urea nitrogen [Mass/volume] in Serum or Plasma 12 mg/dL 6-20 [facility] Osmolality of Serum or Plasma by calculation 287 mosm/kg 275-300 [facility] Creatinine/Urea nitrogen [Mass Ratio] in Serum or Plasma 10 [facility] Bicarbonate [Moles/volume] in Serum 22 mmol/L 22-29 [facility] Alanine aminotransferase [Enzymatic activity/volume] in Seru m or Plasma 27 U/L <41 [facility] Anion gap 3 in Serum or Plasma 11 mmol/L 8-15 [facility] Glomerular filtration rate/1.73 sq M pre dicted among non-blacks [Volume Rate/Area] in Serum or Plasma by Creatinine-based formula (MDRD) 87 mL/min/1.73m2 >60 [facility] Glomerular filtration rate/1.73 sq M pre dicted among blacks [Volume Rate/Area] in Serum or Plasma by Creatinine-based formula (MDRD) >60 [facility] ID Date Data Source [id number] 01/02/2020 11:56:59 PM EDT [facility] Name Value Range Interpretation Code Description Data Clarice rce(s) Supporting Document(s) Thyrotropin [Units/volume] in Serum or Plasma 3.100 u[IU]/mL 0.270-4. 200 [facility] ID Date Data Source [id number] 01/02/2020 02:16:00 PM EDT [facility] Name Value Range Interpretation Code Description Data Clarice rce(s) Supporting Document(s) Thyroid Stimulating Hormone 3.100 [facility] ([facility]) Troponin 0.00 [facility] ID Date Data Source [id number] 09/07/2019 06:03:48 PM EDT [facility] Name Value Range Interpretation Code Description Data Clarice rce(s) Supporting Document(s) [facility] RRYYDs0hQeAQUtSdf9TqRqEkMUSnZR3mlia8Q2M2dZJdH1MbmGEcn4yuV3KgP8PvVNZmQSJBSZ5JbRZz jb2 [file] XJ/2dH3a4/Refuse Collector+UnLT1p+0vKTlp+0/KTlJy0/cosKy14xps61xX/YxCW3Z02+LG8wyYKSmfCSQTQ4BuDF [file] KAfINVQZDL1cDXwOQNNGSY9xQVKmIVQBqGVWR0XSRk 0VNha4FZnn7VCcpRVJhaGUBIbpOCDhccALnXiCDRBxIc1WdEh8IMSi9FOUpZZWR3nCQh9bHxd8pOwn9N TcaOZZvrSYFWxmTOEK4HXTg3LKRbMU6UEIe5WWMwNW5KGUf4QSIzDJ4TMIp9QRBdMO0LTKs2QQDsBN7W MYa48DIrIH2BGYi28WIjKY2GYQh73ARdIC9DNUs69P MsTNA9254gHp56nm+KcWJbeXi9xhohG1dMy+H7UBgaMuPvosHV2xv3/G4LMx+JgNQipUz4rtglH8kVk+ H8BsGSWOpYWf027JGlQXokVQJosExVGSGFNrNN5jve61z3xwk29xHIRKRitA5N2Vck2l9aMQnCWueQWA tjEfKFqOjMpMj4LVyOYRTynp5tWA6kq7/vs34kxNoZ 65UkIaFUQqSVPONhfhcPYnZzVkWtgJRTdITaqjajQakK8x/NngvVA+rDxIDg6YpDHKGQ5iQg5tX7xyP2 Scs5k+5Q2jZvGKLShcAO4vBB6xAcUm468/jdK82uh+hIY7rxuyL5r5z4AhutcC1du31e1/3Yma+34DkP AZC7koz124mz6S3H+a+34DEuU+qUGedNZCe/manager of school/mk [file] Wt7+9u3z//Y58vDM9jVF2mF8J27/9otvf/p2A100q5 fUi578Kf/xOH8J6094oBtF4HTEsJU9nvf1uBiTvc4o1Ip1x/Z9DjzY3eh6hgt6FsBX65//1Xe/efvVL7 ///MWan5ewD/7km68//UbtV7482+uPn77/5oAgbwR05z8/5uc27qsUh/p3jYkj7u72/Pzpm4+//vDzH2 biB6Y7R18xnkyTckoS+7+++e5X37/9+NOHn/zm6w+f rnHUk8r/+zwzn61av/f/fP+TQj98+vSz33z+2bfffPhPfuh+RO8f+mx66toumK27j+++/+XHr7/56Tdf v31++6cPv/740hSM5/8z95hfqy8Q559+fn9/4O1//Ynf/N1/0boDwVi72jH18alOt2ous/zwk+9/+MFd 0mt/sH/v7ePX/8d/8rHbdrg/9k8/+/ys05guW/rDp3 bvf28jK0e0dJ/fLvvRh1/gM5u63tz+kvGfnNYuenn/zM8+fvj0+e3TfbG++f7tpx++fz/HF267K5+9P/ 71X/78r3/4659+/y9v//V/lc7161/75//2x9/+4e/efvzXP/z2z2+/+fu3f/5lj3hvb/7bt7/8+W38g8 Q/4PibI56jo/eb45ff/jfykCo34u+r9qc//cO/8Y/X +4XvHkm2Xu/k59QCgj/SX/i8fvb/VbqsUl8f/u753tY3K+k5P63f/1b5ko8KRO0pfd/1VrT6JfDP2+v3 W+xKxufS3gbyi+DT7//193/721szv4a6yf18+83Pf/4t4Fhhpv6Dwv6172B850jpTN7/fH/bgh3EJm+6 d8Sfm+GFG0P8u0al6ZRpdc/cTb/+/Z///e/f/vrbf/ /9F7/+/lB+tuB680v+lAr1iQsE2Q/++gP+8tPbH/7877//6//72z/+Jz//HCnbh1x8O7vfX7/9wf7x0/ dv//L/vJ/7H/7y5x/+/T7j05Umx533Au/4+R/+5lCycXuJauAgY9/+LZfnqvuYc0T+cus/f3DyL+wL4n hxgDBM36gl4VM//NGnH31+++3/+P2//lkt81DwVGz6 ftcceb//3p9b//Ov//y3P/j0cx2+/e0fv7i+6wv0x3/87e/+2u8873L55Y2//uF3X/eK+h//63/87ou+ T3/5y5+++lY2eFvwx/yvP89clh6ZkD11D+33v/vvf/5O515sgc/eL0v4/MFHdw+R+ui//gz8AOjEt625 1djaISU2H2jqkk+qG8q16uuzFg/NN2gcGj11Z5gxeD Qteqn+5W//2+/f5O0v//rlGvBuJmFtenv7+R2Q3Nob05bvuK7rXzN7CJeS9EaOs/HpJx8/vd/bi0w10E 7if/j661/02ys2v35CoizzYKuw6rm/oyKQ+YapoyMgtMNdTS0ZMP6rj2GeBbK8NMCay0VcHPhzCNi6wO DrCTvtjpNxk0WcbyypR3Rda0LwNnLnQARrTfRiZqa5 FNNoCtI1tIKgVvPiFMJnG1VpFHZcIkO3FcXcYTHZUW9HPYGbuzLjHnMuCUA+FuRrKI7vixazNSYqb9Pi VVazONoyUNWjF8P9nExlSGFaH3GpmW17QITqY6KkxuX1CSV7YSIcLdLtWHFssEQxZQNrKMB+BqLvNZ1u zcxoRKRym3PoONfsCZT9zS1bNJkKKZUQRKxBBUbaNw B1j29cjaLDHHFgOGHySQ0SqbMdfUrqmvPvhRClYEK6FkIbSQAlGWmiWMLiCEBCSDHbEXViGNPhNGBuV3 MdjSgsCBrKIPWGCGeBQMsjDzHvi3A0FAAffsUOEA3QFWTMXoolBZVBIlKsRpwoOBJrVCPeR0HfwuCvlV NlLQGRBWwjFqvhQGJozM1zvZseZ6DcKMJ2s9UlSM9Y T3WlXYAcWPRIGZQ6r0UeMUCpytzcuvkaQaFgMEKhUBSbBJGoPR7Vnw4lqCMivuRiIGUXFWuxDtssDK2y cQpdenemN5IpjLMsWRM+EoYgSQ5faf0+VcGaBVHjXpx9FVQzFRxqNBYpDCLbXSLyV7wnHREtVeYzRKJc OaKaDW5Py0IktTDjHx6ckuDkWlxSvEIeIwmnATDpAV IxJWBiUqGFWCDgROMzZTRoBEV6SNAnSEZhCXyhYROuFSUaSGu9PCZvRRIfXX2hRtScHHQgXwY2JzAtIS XrQCNueiKYEFKaZDR1GKNpSTHhZANkIELrIXysRWNqCFBuVIJdTRR1NEB6WTGrLpJkFENqYUPjFAKsON PwOKZtceGFLAVkFILxFTU4LTZwTKPgBISfZNliOTYb JZYbTReaEENfTRRdPH0oDbUkFHAuJOKwLDuoQEEdVHTtmnFWSEQbBOExXPMmHFUvNGEmEPElWAnbIMBg WEPkIAApVIDpDOKoAQ6bUzHkTYHqQDB9WPJkRCRfXYEsjaBUQEKkBWBdYEu3UKCfTRBoTGYyRKxkJDZp BSYyPHF1PSVeSNDlFH2dNoLpAICzAHH6TuFnJQYaKI YxbiHYPRLbRYAmQKZ7CzPgQEOaWWRyBKciXTIkSAScBDlaWLSrYRCbFR8qNoCiXVZoHUNgYRfrJBZyCW ZvjwUJZNIxDWCrQXGmCkBbMXDrMDSjPCaqMBXtUEPfGKWdVERvSRJuIM0mZpIbZLVkVOY1INgvXULaML AgbiAKMDAwMDAwMTczNCAwMDAwMCBuIAowMDAwMDAx IAU3OHQhSSFxFT3vZaZgOYGwIXHkLCWlXfR9WrVlSxLEhWVfjBccoll2YQnyG2p4XICtNVruUF8kodEk DWHjPzqdQx6qeWF6BRIeJssDZz8Rs5QfnoX1nwCwJvIgKCFhXoQtRW3D ID Date Data Source [id number] 09/07/2019 01:47:57 PM EDT [facility] Name Value Range Interpretation Code Description Data Clarice rce(s) Supporting Document(s) ED Provider Note [facility] YUBCYv8cSdADJhGq90/XQQkrWZEdc9GpKVvdFTj2EIdoCROsI8UsJLE8lX9bQKX5MIxPReYiEaOlVhD2 lbm [file] 9GDQo= ID Date Data Source [id number] 09/06/2019 10:08:42 PM EDT [facility] XR CHEST FRONTAL ONLY [id number] RESULTI nterpreted by:Eduardo Alba W[facility] D[facility] INFORMATION: Exam: XR Chest, 1 View Exam date and time: 09/06/2019 9:49 PM Age: 23 years old Clinical indication: Chest pain; Additional info: Dyspnea TECHNIQUE: Imaging protocol: XR of the chest Views: 1 view. COMPARISON: No relevant prior studies available. FINDINGS: Lungs: Unremarkable. No consolidation. Pleural space: Unremarkable. No pleural effusion. No pneumothorax. Heart/Mediastinum: Unremarkable. No cardiomegaly. Bones/joints: Unremarkable. IMPRESSION: No acute findings. THIS DOCUMENT HAS BEEN ELECTRONICALLY SIGNED BY EDUARDO ALBA MDThis document has been electronically signed by Eduardo Alba MD on 09/06/2019 10:08 PM Name Value Range Interpretation Code Description Data Clarice rce(s) Supporting Document(s) ID Date Data Source [id number] 09/07/2019 02:44:24 AM EDT [facility] Service Cmnt XXX-Imp : Microorganism XXX Cult : Test Not Performed. Respiratory Panel results suggest COVID-19 PCR is not indicated. Contact Microbiology at [phone] if further testing is required. Name Value Range Interpretation Code Description Data Clarice rce(s) Supporting Document(s) ID Date Data Source [id number] 09/07/2019 02:39:14 AM EDT [facility] XXX-Imp : Microorganism XXX Cult : This respiratory PCR panel detects Influenza A H1, H3 and 2009 H1 viruses, Influenza B virus, Respiratory syncytial virus, Human metapneumovirus, Parainfluenza virus 1, 2, 3 and 4, Adenovirus, Rhinovirus/Enterovirus, Coronavirus HKU1, NL63, OC43 and 229E, Bordetella pertussis, Mycoplasma pneumoniae and Chlamydia pneumoniae. All results are negative except:Ribonucleic acid of Human coronavirus [id number] assay does not detect novel Coronavirus (SARS-CoV, SARS-CoV-2, MERS-CoV). Name Value Range Interpretation Code Description Data Clarice rce(s) Supporting Document(s) ID Date Data Source [id number] 09/06/2019 10:24:35 PM [facility] Name Value Range Interpretation Code Description Data Clarice rce(s) Supporting Document(s) Leukocytes [#/volume] in Blood by Automated count 10.7 10*3/uL 4-10 H [facility] Erythrocytes [#/volume] in Blood by Automated count 6.05 10*6/uL 4.6- 6.1 [facility] Hemoglobin [Mass/volume] in Blood 16.8 g/dL 13.5-18 [facility] Hematocrit [Volume Fraction] of Blood by Automated count 49.8 % 4 1-53 [facility] Erythrocyte mean corpuscular volume [Entitic volume] by Auto mated count 82.4 fL 80-96 [facility] Erythrocyte mean corpuscular hemoglobin [Entitic mass] by Automated count 27.8 pg 27-33 [facility] Erythrocyte mean corpuscular hemoglobin concentration [Mass/volume] by Automated count 33.7 g/dL 32.0-36.0 [facility] distribution width [Ratio] by Automated count 13.6 % 11.5-14.5 [facility] Platelets [#/volume] in Blood by Automated count 282 10*3/uL 150-400 [facility] Differential cell count method - Blood [facility] Neutrophils/100 leukocytes in Blood by Automated count 74 % [facility] Lymphocytes/100 leukocytes in Blood by Automated count 13 % [facility] Monocytes/100 leukocytes in Blood by Automated count 11 % [facility] Eosinophils/100 leukocytes in Blood by Automated count 1 % [facility] Basophils/100 leukocytes in Blood by Automated count 1 % [facility] Neutrophils [#/volume] in Blood by Automated count 7.93 10*3/uL 1.8-7 .0 H [facility] Lymphocytes [#/volume] in Blood by Automated count 1.36 10*3/uL 1.2-4 .0 [facility] Monocytes [#/volume] in Blood by Automated count 1.20 10*3/uL 0-0.8 H [facility] Eosinophils [#/volume] in Blood by Automated count 0.09 10*3/uL 0-0.5 [facility] Basophils [#/volume] in Blood by Automated count 0.09 10*3/uL 0-0.2 [facility] Nucleated erythrocytes/100 leukocytes [Ratio] in Blood by Automated count 0 /100{WBCs} 0-0 [facility] ID Date Data Source [id number] 09/06/2019 10:35:52 PM EDT [facility] Name Value Range Interpretation Code Description Data Clarice rce(s) Supporting Document(s) Bicarbonate [Moles/volume] in Serum 26 mmol/L 22-29 [facility] Chloride [Moles/volume] in Serum or Plasma 97 mmol/L 98-107 L [facility] Creatinine [Mass/volume] in Serum or Plasma 1.18 mg/dL 0.70-1.20 [facility] Glucose [Mass/volume] in Serum or Plasma 121 mg/dL 70-140 [facility] Potassium [Moles/volume] in Serum or Plasma 3.5 mmol/L 3.4-5.1 [facility] Sodium [Moles/volume] in Serum or Plasma 137 mmol/L 136-145 [facility] Urea nitrogen [Mass/volume] in Serum or Plasma 15 mg/dL 6-20 [facility] Anion gap 3 in Serum or Plasma 14 mmol/L 8-15 [facility] Osmolality of Serum or Plasma by calculation 286 mosm/kg 275-300 [facility] Creatinine/Urea nitrogen [Mass Ratio] in Serum or Plasma 13 [facility] Calcium [Mass/volume] in Serum or Plasma 9.3 mg/dL 8.6-10.0 [facility] Glomerular filtration rate/1.73 sq M pre dicted among non-blacks [Volume Rate/Area] in Serum or Plasma by Creatinine-based formula (MDRD) 85 mL/min/1.73m2 >60 [facility] Glomerular filtration rate/1.73 sq M pre dicted among blacks [Volume Rate/Area] in Serum or Plasma by Creatinine-based formula (MDRD) >60 [facility] ID Date Data Source [id number] 09/06/2019 10:35:52 PM EDT [facility] Name Value Range Interpretation Code Description Data Clarice rce(s) Supporting Document(s) Troponin T.cardiac [Mass/volume] in Serum or Plasma <0.01 [facility] Procedure Social History Code Duration Value Status Description Data Source(s ) Alcohol intake 01/02/2020 12:00:00 AM EDT Current drinker of al cohol (finding) completed Current drinker of alcohol (finding) [facility] Smoking 01/02/2020 12:00:00 AM EDT Current every day smoker co mpleted Current every day smoker [facility] Alcohol intake 09/06/2019 12:00:00 AM EDT Current drinker of al cohol (finding) completed Current drinker of alcohol (finding) [facility] Smoking 09/06/2019 12:00:00 AM EDT Current every day smoker co mpleted Current every day smoker [facility] Vital Signs ID Date Data Source [id number] Name Value Range Interpretation Code Description Data Source(s) Diastolic blood pressure--sitting 95 mm[Hg] 95 mm[Hg] [facility]) [employer], large cuff/Ra Systolic blood pressure--sitting 130 mm[Hg] 130 mm[Hg] [facility] ([facility]) [employer], large cuff/Ra Heart rate 63 /min 63 /min [facility] Body mass index (BMI) [Ratio] 33.7 kg/m2 33.7 k g/m2 [facility] ([facility]) Body height 70 [in_i] 70 [in_i] [facility] 5'10" Body weight 235.00 [lb_av] 235.00 [lb_av] [facility] ([facility]) ID Date Data Source [id number] 01/05/2020 10:48:04 AM EDT [facility] Name Value Range Interpretation Code Description Data Source(s) WEIGHT RECORDED 230 lb 230 lb [facility] Body height Measured 71 in 71 in [facility] ID Date Data Source [id number] 09/09/2019 09:39:27 AM EDT [facility] Name Value Range Interpretation Code Description Data Source(s) WEIGHT RECORDED 226 lb 226 lb [facility] Body height Measured 71 in 71 in [facility]
[2020-07-24] MEDS ORDERED: ZOLO50TA PO (18:35)
[2020-07-24] MEDS ORDERED: NS 1,000 ML IV ONE ×2 (19:00→21:00)
[2020-07-24] MEDS ORDERED: ONDANSETRON 4MG/2ML VIAL IV ONE (19:00)
[2020-07-24 19:13] LABS: BASO # 0.1 10^3/uL (0.0-0.2); BASO % 0.9 % (0.0-1.0); EOS # 0.1 10^3/uL (0.0-0.5); EOS % 1.1 % (0.0-3.0); HEMATOCRIT 47.8 % (42.0-52.0); HEMOGLOBIN 16.4 g/dl (13.5-17.5); LYMPH # 2.6 10^3/uL (1.5-5.0); LYMPH % 24.2 % (24.0-44.0); MEAN CORPUSCULAR HEMOGLOBIN 27.5 pg (27.0-33.0); MEAN CORPUSCULAR HGB CONC 34.3 g/dl (32.0-36.5); MEAN CORPUSCULAR VOLUME 80.1 fl (80.0-96.0); MONO # 1.2 10^3/uL (0.0-0.8); NEUTROPHILS # 6.7 10^3/uL (1.5-8.5); NEUTROPHILS % 62.2 % (36.0-66.0); PLATELET COUNT, AUTOMATED 361 10^3/uL (150-450); RED BLOOD COUNT 5.97 10^6/uL (4.30-6.10); WHITE BLOOD COUNT 10.8 10^3/uL (4.0-10.0)
[2020-07-24 19:58] LABS: ALBUMIN 4.2 GM/DL (3.2-5.2); ALT/SGPT 37 U/L (12-78); BILIRUBIN,DIRECT 0.2 MG/DL (0.0-0.2); BILIRUBIN,TOTAL 0.5 MG/DL (0.2-1.0); BLOOD UREA NITROGEN 12 MG/DL (7-18); CALCIUM LEVEL 9.6 MG/DL (8.5-10.1); CARBON DIOXIDE LEVEL 25 MEQ/L (21-32); CHLORIDE LEVEL 106 MEQ/L (98-107); CK-MB VALUE MASS 2.1 NG/ML (<3.6); CPK CREATINE PHOSPHOKINASE 1411 U/L (39-308); CREATININE FOR GFR 1.61 MG/DL (0.70-1.30); FREE T4 1.29 NG/DL (0.76-1.46); GLOMERULAR FILTRATION RATE > 60.0 (>60); GLUCOSE, FASTING 109 MG/DL (70-100); LIPASE 168 U/L (73-393); MB/CK RELATIVE INDEX 0.15 (< OR =4); POTASSIUM SERUM 3.8 MEQ/L (3.5-5.1); SODIUM LEVEL 140 MEQ/L (136-145); TOTAL PROTEIN 7.4 GM/DL (6.4-8.2); TROPONIN I < 0.02 NG/ML (< 0.10)
--- OUTSIDE RECORDS SUMMARY | 2020-07-24 20:03 | CCD ---
Author Author [facility] Organization [facility] Address Unknown Phone Unavailable Care Team Providers Care Milk Driver Name Role Phone NAIDA, Sherin CABRERA MD [...] is protected by Article 27-F of the [facility] Public Health law. If you continue you may have access to information: Regarding HIV / AIDS; Provided by facilities licensed or operated by the [facility] Office of Mental Health; or Provided by the [facility] Office for People With Developmental Disabilities. If such information is present, then the following [facility] mandated warning applies: This information has [...] law may result in a fine or correction sentence or both. A general authorization for the release of medical or other information is NOT sufficient authorization for further disc losure. Allergies and Adverse Reactions Type Description Substance Reaction Status Data Source(s ) Drug Class NO KNOWN ALLERGIES NO KNOWN ALLERGIES [facility] Family History Family Member Name Family Member Gender Family Member Status Date o f Status Description Data Source(s) Unknown Female Problem [facility] ([facility]) Encounters Encounter Providers Location Date Indications Data Source(s ) Outpatient Attender: RICK PASCAL MD Main Office 02/16/2020 08:30:00 AM EDT [facility] ([facility]) Emergency Attender: DEFAULT / GENE POLO / UNKNOWN PROVIDER ALIASES Attender: DAMIAN LUIS MDReferrer: DAMIAN LUIS MD [id number] 01/02/2020 09:40:17 PM EDT - 01/03/2020 12:54:00 AM EDT Palpitations [facility] Palpitations Patient discharged. Emergency Attender: HENRI CHANDLERReferrer: HENRI RICO HVCP-GEM 09/06/2019 09:32:43 PM EDT - 09/07/2019 12:49:00 AM EDT Cough [facility] Cough Patient discharged. Insurance Providers Payer name Policy type / Coverage type Policy ID Covered democrat ID Covered democrat's relationship to macario Policy Macario Plan Information [facility] HUMANA [id number] O UNAVAILABLE UNAVAILA BLE U [id number] Self [id number] EXCELLUS I [id number] Self [id number] BCBS Child Health Plus Health Maintenance Organization (HMO) Family Dependent [facility] Self [id number] Problems, Conditions, and Diagnoses Code Display Name Description Problem Type Effective Dates Data Source(s) [id number] Counseling about tobacco use Counseling about tobacco use Problem 02/16/2020 12:00:00 AM EDT [facility] [id number] Tobacco user Tobacco user Problem 02/16/2020 12:00:00 A M EDT [facility] ([facility]) [id number] Palpitations Palpitations Problem 02/16/2020 12:00:00 A M EDT [facility] ([facility]) [id number] Elevated blood-pressure reading without diagnosis of hypertension Elevated blood-pressure reading without diagnosis of hypertension Problem 02/16/2020 12:00:00 AM EDT [facility] ([facility]) [id number] Dietary management surveillance Dietary manageme nt surveillance Problem 02/16/2020 12:00:00 AM EDT [facility] [id number] Obesity Obesity Problem 02/16/2020 12:00:00 AM ED T [facility] ([facility]) [id number] Chest pain Chest pain Problem 02/16/2020 12:00:00 AM ED T [facility] ([facility]) R00.2 Palpitations Palpitations Diagnosis 01/02/2020 09:40:17 P M [facility] card eval card eval Diagnosis 01/02/2020 09:40:17 PM ED [facility] R05 Cough Cough Diagnosis 09/06/2019 09:32:43 PM ED [facility] Fever Fever Diagnosis 09/06/2019 09:32:43 PM ED [facility] Surgeries/Procedures Procedure Description Date Indications Data Source(s) XTRNL PT ACTIVATED ECG RECORD MONITOR 30 DAYS 03/10/20 20 12:00:00 AM EDT [facility] ([facility]) XTRNL PT ACTIVTD ECG DWNLD 30 DAYS PHYS R&I 03/10/2020 12:00:00 AM EDT [facility] ([facility]) Ambulatory Blood Pressure Monitoring;Recording,Scanning,Inte r,RPT 03/01/2020 12:00:00 AM EDT [facility] ([facility]) ECG ROUTINE ECG W/LEAST 12 LDS W/I&R 02/16/2020 12:00: 00 AM EDT [facility] ([facility]) UH COVID-19 PCR COVID-19 PCR Routine 01/02/2020 11:31 PM EDT 01/03/2020 03:31:00 AM EDT [facility] TROPONIN QUANTITATIVE POCT ISTAT TROPONIN Routine 01/02/2020 11:30 PM EDT 01/03/2020 03:30:00 AM EDT [facility] XR CHEST FRONTAL ONLY [id number] XR CHEST FRONTAL ONLY 63051 STAT 01/02/2020 11:01 PM EDT 01/03/2020 03:01:00 AM EDT [facility] COMPREHENSIVE METABOLIC PANEL METABOLIC PANEL, COMPREHENSIVE ST AT 01/02/2020 10:34 PM EDT 01/03/2020 02:34:00 AM EDT [facility] BLOOD COUNT COMPLETE AUTO&AUTO DIFRNTL WBC COUNT CBC AND DIFFER ENTIAL STAT 01/02/2020 10:34 PM EDT 01/03/2020 02:34:00 AM EDT [facility] THYROID STIMULATING HORMONE TSH TSH STAT 01/02/2020 10:34 PM EDT 01/03/2020 02:34:00 AM EDT [facility] EKG ED PHYSICIAN INTERPRETATION EKG ED PHYSICIAN INTERPRETATION Routine 01/02/2020 9:40 PM EDT 01/03/2020 01:40:56 AM EDT [facility] EKG 12-LEAD - CMAXX REPORT EKG 12-LEAD - CMAXX REPORT 01/02/2020 9:17 PM EDT 01/03/2020 01:17:48 AM EDT [facility] EKG 12-LEAD EKG 12-LEAD STAT 01/02/2020 9:17 PM EDT 01/03/2020 01:17:48 AM EDT [facility] EKG ED PHYSICIAN INTERPRETATION EKG ED PHYSICIAN INTERPRETATION Routine 09/06/2019 11:00 PM EDT 09/07/2019 03:00:03 AM EDT [facility] XR CHEST FRONTAL ONLY [id number] XR CHEST FRONTAL ONLY 13030 STAT 09/06/2019 10:05 PM EDT 09/07/2019 02:05:43 AM EDT [facility] EKG 12-LEAD - CMAXX REPORT EKG 12-LEAD - CMAXX REPORT 09/06/2019 9:59 PM EDT 09/07/2019 01:59:22 AM EDT [facility] EKG 12-LEAD EKG 12-LEAD STAT 09/06/2019 9:59 PM EDT 09/07/2019 01:59:22 AM [facility] BLOOD COUNT COMPLETE AUTO&AUTO DIFRNTL WBC COUNT CBC AND DIFFER ENTIAL STAT 09/06/2019 9:53 PM EDT 09/07/2019 01:53:00 AM [facility] TROPONIN QUANTITATIVE TROPONIN T STAT 09/06/2019 9:53 PM EDT 09/07/2019 01:53:00 AM EDT [facility] BASIC METABOLIC PANEL CALCIUM TOTAL BASIC METABOLIC PANEL STAT 09/06/2019 9:53 PM EDT 09/07/2019 01:53:00 AM EDT [facility] Results ID Date Data Source [id number] 01/18/2020 03:58:00 PM EDT [facility] ([facility]) Name Value Range Interpretation Code Description Data Clarice rce(s) Supporting Document(s) White Blood Count 7.10 [facility] ([facility]) Platelets 274 [facility] ([facility]) Red Blood Count 6.07 [facility] ([facility]) Hemoglobin 17.0 [facility] ([facility]) Hematocrit 51.3 [facility] ([facility]) ID Date Data Source [id number] 01/18/2020 03:58:00 PM EDT [facility] ([facility]) Name Value Range Interpretation Code Description Data Clarice rce(s) Supporting Document(s) Cholesterol 198 0-200 [facility] ([facility]) Triglycerides 48 40-200 [facility] ([facility]) HDL 71 40-92 [facility] ([facility] Cholesterol in LDL [Mass/volume] in Serum or Plasma by calculation 10 5.0 [facility] ([facility]) Chol/HDL Ratio 2.79 [facility] ([facility]) ID Date Data Source [id number] 01/18/2020 03:58:00 PM EDT [facility] ([facility]) Name Value Range Interpretation Code Description Data Clarice rce(s) Supporting Document(s) Thyroid Stimulating Hormone 2.250 [facility] ([facility]) ID Date Data Source [id number] 01/18/2020 03:58:00 PM EDT [facility] ([facility]) Name Value Range Interpretation Code Description Data Clarice rce(s) Supporting Document(s) Albumin [Mass/volume] in Serum or Plasma 4.4 [facility] ([facility]) Carbon dioxide, total [Moles/volume] in Serum or Plasma 24.4 [facility] ([facility]) Calcium [Mass/volume] in Serum or Plasma 9.7 [facility] ([facility]) Alanine aminotransferase [Enzymatic activity/volume] in Serum or Pl asma 25 [facility] ([facility]) Chloride [Moles/volume] in Serum or Plasma 104 [facility] ([facility]) Alkaline phosphatase [Enzymatic activity/volume] in Serum or Plasma 5 3 [facility] ([facility]) Potassium [Moles/volume] in Serum or Plasma 4.50 [facility] ([facility]) Protein [Mass/volume] in Serum or Plasma 7.5 [facility] ([facility]) Sodium 141 [facility] ([facility]) Aspartate aminotransferase [Enzymatic activity/volume] in Serum or Plasma 15 [facility] ([facility]) Creatinine For GFR 1.36 [facility] ([facility] Urea nitrogen [Mass/volume] in Serum or Plasma 13 [facility] ([facility]) Glucose 97 70-105 [facility] ([facility]) ID Date Data Source [id number] 01/04/2020 09:14:22 AM EDT [facility] Name Value Range Interpretation Code Description Data Clarice rce(s) Supporting Document(s) ED Provider Note [facility] [id number]EfV6JvYWD3xE5jJTQ5WJuMJrWdEaMlFwV2 lbm [file] [id number] ID Date Data Source [id number] 01/03/2020 08:46:56 AM EDT [facility] Name Value Range Interpretation Code Description Data Clarice rce(s) Supporting Document(s) [facility] XZANRb5vSgFPGmUkz9GkOsGnPPSzJJ5ovyh6D8K3bSUjR4CngAWul6myP6DbR9CeSOJzDUWJAW9RnFMy jb2 [file] vR0cXv+D0kB8UGM/7e6xkB0NIe2Y4zx++X0Y/VPQ57k3v/v/lT3+kgg90igy230b+vytR3+heidy/nTLX3 T+NLQwI8zd5Aab3lF19+wMaq91UKD7sOsp99ApknU5 z/7pFBdj6SsbD2kr6949Prv9rbkp1EsUZrzth5OXgx+af/FHxxd/BOOM BOSS/ocB296CpcwJphU/UY8xX51NAr I5v41qmrd4+tSPNSjvyuI7/peH207w673/gCQr82wAtvmlhBYyqF2/DVgd4t1jYu7O3VVmhkR10pjDE4 nW/0/mW0yHnPhMqDwHlELNmwVwh3En84dvAM4RPAxB TABq42EYYw6GSMQyoQNWdAJHmHYOwSKAfQ5KKbxB/NTdd7u+l6b8d+Ncd+Ncd+Ncd+Ncd+Ncd+NUd+15 AtzeN8DvllG39Rpj645Leg+9Uc+4W4SKcR91f0N29y0+E1iuNSWleDX5S9u8VX8Mxmn7maplIJclX8wJ 901/lGv/fX4o5cycWdHKlIVA22dSfmo+C6j4lAaDnR RAkhHvzSYcwV3Sdqt307V7IX7wO0UZhJaAi+kZd64aHl0buaY38fieaiwCwdkXmbfSkn1EpZMB8zpq/V vhihpaQqf9P2S967+jhMqrn64hcYW15Nuq692Fab+B7MoiqEvQT9hkJEbtg+D5FQSzbILrjVTyvE6+cA I96E8MyGWde9QeoD2DB2ufaqLQHeZrglmGVEMTvGNt QAgyLCGLJB3Ct93BoTd80qINU5Sf/rW/OYvjtYBzMwAxtgA+tCk2hBUOAYSV78zBpZ2wn5HaSSw378iU v8wv6V7yWe/8MoCyTtd42/Dnpqeoz/1vR4/n0bgfzuV8qixyvM0oWDCwXr1EPrYBWHHWekHmovRdPzCf sVNtlB4f45y7yFHAiFTmkDP6nz/ScQHZ1KqFirPLxN MQcHHav5rB4MMTCA9fk86B55gFvmt6s7isFEADIAbs5I6RnXK6r4OpwVlu/YM/hj5qn2mj4DHbBecvyf +4SyVo2K5UbfJ7tNSYjeawsJKt6A9+XKTT2oL2l6+hqZa1jWOhilS7qLc3WH9itgN0hlp2hWY6heOqlv P1kdmkbh5ndCdw8Fx8EbaltiMdk1puwtog4HS3228P [file] R98eTnB2G6v79pwq83p/7665+v3ZsvO/wzGZ/97Z7w53wu+x9+/e0/vf36+x8+vvv4/p0k25359uh9v9 9+/e1Xv3n/2DmrXc7Wq33/+ObdF79+o6g84Z6dJ0030hc2D+8/fvjq/W/hba3LvS0a2r1iN7m3t17meX Zp9uX1z/7h7cOX//Txy2/e/vGrj1++Jefdh+R99e6v /PH9Yr7/+Fkhby5k+/eff/Wrrz5/+/j2j+9+8/7t3S+//e51g1+/7vSv/KGUjPtXb+8///uf/mwV57p/ 9o9fvv/15iPRu3n50b5KqAqoP1k75gje4b/+tfyHciVAEzh67X85jK7q4D3+hPr7b+/keJosu3hLa3l6 7d+/f93uD2+/+k6Q462fS/2gtp0xp/n5n//0r7//yx 9//Je3//Yfb7/37ukzF2c4/+5gx6030rt/pdlk7wednb/67Z//i8x//pu3P//wefsT0JoxfoVf1u2c6i bum//4YXDl6f9umB/84y/+wSkWVUzI8gR/7DyOqb0Zaee868v/GuKaUF9g/r63llO8RuP7l0DjovaS1v EM9+Bs1nVGPeD01baznW0fD8DK2jQi/+DDj//641/+ soV41qnwH+8+fvzy/T++/fDuww+/ftnkI73thp/nL4+uf3n/qYp0V0Foz9bx+xnIv/smdn9SOg1ItlzK 1ldEn18461//3ueyqzejJ82c1mnt5H4D31j/+vAc8fDa4QIrB4md1Ycm0i8/p3//8S//57d/+Gms98l3 2HM13bib/tOzb+yuSlji3q//+3Xvv//zn356+lWW7i mqj7L00I77/MU/wTteJ7zaBzoi/zW075PxhwajCSYsRQ9y1p+rBaA2Ta/ftZ/e1ca+//kPb980++3//f Hf/hPUym0pjJ+/+/7Dz+9KIa85+HpT/cdf/vlvfvLr/Ry++e0fPnm+8Qn6yz/89nf/6yd/i3M96Bs/+u nfPjPGrj/8t//8t4/7Rcu7c2/87P03P/lsN6mLg//8 o47tSrM97fGQdtIn+vF3/+NPv//d73/7p89+9pB87130t87NhjPzy/x+tQDJ3//bv7+R8N410soR10/4 +Pb9u6++xY/h8xs9G1O+fv/b//7jm7z9+V/lwDFdZvfYwN89g/+j2E6y2m4ON55j/78v3sTXW+27D1+8 //LodV34PZ8cffL1aa8/Cadb207wzrejbGc80a1Tb9 qQvZeavwPujIQvZE6VCR4dx8LxHjC1XDRuf4RoXYocBOf0zQPmHUjpkdVbp4DdixyzW4Kjn7SbUvJwOI OuPxLuPct7PYEdZsB4bNApGyDsLLPaP5NgXNByVzD5PyHoIYFURU4VWHDnetOyVbWdEQO+FcVtSR8gcg boVUGcn2UiGJvcDPewHYRaH8E3zVkeBKZxO1KkfO65 NZKfA0MtzdU3ZJX6VGDgQiJfEVWewELmBKOqCUA+NaOmPX6dvlsvULVnl3KuLAyeCJP6pZ5gDLuXXNSI PCmOATxxPsQ1l38gxqMHZSYuOIYdID0AtfYsfDtjriDyzOLiAIF6EeIfQBI0IXZoHAB5ULGCMMRxFMDp IKJjDLSqJ0CbbTadBEeSLDGYMMhLKTdpZzPjv1F4ZK TzqrKOPD8AVQNAAswpZQDGXqLeXgbgBCRnPXDeL2ApkhGonFIdPRMAOVtwUtkwLEYhlF0btGiyK7MgCM P8l4UvGI7CV4EqZIQpMBLLMSK4t3WyMKPsbryauvzfYyTjYDGnOVKvQLIwUP4Rvs5heWDsqsCfABQVER jxKwbtIA2fkNrnjgprI7AldLQvHPV+NoVfQL0hjz7+ YsZdGMZvBmu3RDDlKCcgCXVcUFHbESZhK0xxLIQrBcRnHPSnUlAeAM4Jj6WvhYAmBg3cqiCeUotOpJFq VojnGAKkTKYhOFZgQwPCZUCeVQHiCHWkEKL8RRKdQAWtFSmkMRXzJDJbFYF9ZMOqRCEdVL5fXgTrLPVw TwO1DEWjMKEiSMEihlGKORIoVLF0Thb9AHCtLVOpCI MhDAeaHVPqNAEmZEMsVHP0LVQ5DHHqHsWxQWMqTRHeRIJjELZzPIDzubNNXIQaLVSfKQU3SRAkSLYrGT KxUQdiRDHlIMGxLJycLDElONRyXQ2dOqQsLRBaYFIlVYezKEWmFLMxqwINEWZuIIJvGJPqSLPmIPDuNW LmHHxaUOIeCQIoESScADEvEWQbMY5cInDuHNWdHRJ8 BRScZNBuCMWizzAXSQOsMCVcFMt4JMQjGZFsJXIzMHdgHHZxLIAlBHG2DQPeLNHpSN7bVbXjIFNmOZY4 ZwBjBHSsVEDnzqRGIJYaHTVvGYJ5YkMfVZGvEIYtYTclSVIpCCUzMVkmGJPeDYXjJB3jWmWkFRZaXFGw OTcgMDAwMDAgbiAKMDAwMDAwMTQwNiAwMDAwMCBuIA pgNJShEPLqPAxeFHTtKNViTZ5bCkDdJUQeFYZ7IBpxOSUpLRJpdqJLHTGjOHQwHRgnEBGiMGGoUGBkNF dzQGEgVPDfUMZ6YZZoPDXyOM9iMwTvXQHxKBHrNYLkCwU0LjGoXyDRsYCewCbbjzp0BGqvD5q8FSNnLI feXN6mjdAeSOVxBblkGb9kdMU6LQMiHiuZFr7Ta6JtovE2xnLiVaTcJSkvSrKcCT4H ID Date Data Source [id number] 01/03/2020 01:00:35 AM EDT [facility] Service Cmnt XXX-Imp : NoneMicroorganism XXX Cult : 2019 nCoV Real-Time RT-PCR: NOT DETECTEDTest performed using the Cepheid Xpert Xpress SARS-CoV-2 assay. This test is only for use under the Food and Drug Administration's Emergency Use Authorization. Additional information is available on the following FDA websites for health care providers and patients. https://www.fda.gov/media/519355/download , https://www.fda.gov/media/621105/download Name Value Range Interpretation Code Description Data Clarice rce(s) Supporting Document(s) ID Date Data Source [id number] 01/02/2020 11:31:00 PM [facility] Service Cmnt XXX-Imp : NoneMicroorganism XXX Cult : 2019 nCoV Real-Time RT-PCR: NOT DETECTEDTest performed using the [employer] Xpert Xpress SARS-CoV-2 assay. This test is only for use under the Food and Drug Administration's Emergency Use Authorization. Additional information is available on the following FDA websites for health care providers and patients. https://www.fda.gov/media/087709/download , https://www.Meetingmix.com.gov/BettrLife/202139/download Name Value Range Interpretation Code Description Data Clarice rce(s) Supporting Document(s) Microorganism identified in Unspecified specimen by [facility] This lab was ordered by [facility] and reported by [facility]. ID Date Data Source [id number] 01/02/2020 11:30:36 PM [facility] XR CHEST FRONTAL ONLY [id number] RESULTI nterpreted by:ASHLEY GonzalesROCEDURE INFORMATION: Exam: XR [...] rce(s) Supporting Document(s) ID Date Data Source [id number] 01/02/2020 11:45:30 PM [facility] Name Value Range Interpretation Code Description Data Clarice rce(s) Supporting Document(s) Troponin I.cardiac [Mass/volume] in Blood 0.00 ng/mL 0.00-0.08 [facility] ID Date Data Source [id number] 01/02/2020 11:34:49 PM [facility] Name Value Range Interpretation Code Description Data Clarice rce(s) Supporting Document(s) Leukocytes [#/volume] in Blood by Automated count 11.1 10*3/uL 4-10 H [facility] Erythrocytes [#/volume] in Blood by Automated count 5.45 10*6/uL 4.6- 6.1 [facility] Hemoglobin [Mass/volume] in Blood 15.0 g/dL 13.5-18 [facility] Hematocrit [Volume Fraction] of Blood by Automated count 45.7 % 4 1-53 [facility] Erythrocyte mean corpuscular volume [Entitic volume] by Auto mated count 83.8 fL 80-96 [facility] Erythrocyte mean corpuscular hemoglobin [Entitic mass] by Automated count 27.5 pg 27-33 [facility] Erythrocyte mean corpuscular hemoglobin concentration [Mass/volume] by Automated count 32.8 g/dL 32.0-36.0 [facility] E[facility]th[facility] distribution width [Ratio] by Automated count 14.0 % 11.5-14.5 [facility] Platelets [#/volume] in Blood by Automated count 241 10*3/uL 150-400 [facility] Differential cell count method - Blood [facility] Neutrophils/100 leukocytes in Blood by Automated count 73 % [facility] Lymphocytes/100 leukocytes in Blood by Automated count 16 % [facility] Monocytes/100 leukocytes in Blood by Automated count 10 % [facility] Eosinophils/100 leukocytes in Blood by Automated count 0 % [facility] Basophils/100 leukocytes in Blood by Automated count 1 % [facility] Neutrophils [#/volume] in Blood by Automated count 8.13 10*3/uL 1.8-7 .0 H [facility] Lymphocytes [#/volume] in Blood by Automated count 1.79 10*3/uL 1.2-4 .0 [facility] Monocytes [#/volume] in Blood by Automated count 1.07 10*3/uL 0-0.8 H [facility] Eosinophils [#/volume] in Blood by Automated count 0.02 10*3/uL 0-0.5 [facility] Basophils [#/volume] in Blood by Automated count 0.07 10*3/uL 0-0.2 [facility] Nucleated erythrocytes/100 leukocytes [Ratio] in Blood by Automated count 0 /100{WBCs} 0-0 [facility] ID Date Data Source [id number] 01/02/2020 11:56:59 PM EDT [facility] Name Value Range Interpretation Code Description Data Clarice rce(s) Supporting Document(s) Albumin [Mass/volume] in Serum or Plasma by Bromocresol green (BCG) dye binding method 4.3 g/dL 3.5-5.2 [facility] Bilirubin.total [Mass/volume] in Serum or Plasma 0.5 mg/dL <1.2 [facility] Calcium [Mass/volume] in Serum or Plasma 8.7 mg/dL 8.6-10.0 [facility] Chloride [Moles/volume] in Serum or Plasma 106 mmol/L 98-107 [facility] Creatinine [Mass/volume] in Serum or Plasma 1.15 mg/dL 0.70-1.20 [facility] Glucose [Mass/volume] in Serum or Plasma 91 mg/dL 70-140 [facility] Alkaline phosphatase [Enzymatic activity/volume] in Serum or Plasma 58 U/L 40-129 [facility] Potassium [Moles/volume] in Serum or Plasma 3.4 mmol/L 3.4-5.1 [facility] Protein [Mass/volume] in Serum or Plasma 6.5 g/dL 6.4-8.3 [facility] Sodium [Moles/volume] in Serum or Plasma 139 mmol/L 136-145 [facility] Aspartate aminotransferase [Enzymatic activity/volume] in Serum or Plasma 26 U/L <40 [facility] Urea nitrogen [Mass/volume] in Serum or Plasma 12 mg/dL 6-20 [facility] Osmolality of Serum or Plasma by calculation 287 mosm/kg 275-300 [facility] Creatinine/Urea nitrogen [Mass Ratio] in Serum or Plasma 10 [facility] Bicarbonate [Moles/volume] in Serum 22 mmol/L 22-29 [facility] Alanine aminotransferase [Enzymatic activity/volume] in Seru m or Plasma 27 U/L <41 [facility] Anion gap 3 in Serum or Plasma 11 mmol/L 8-15 [facility] Glomerular filtration rate/1.73 sq M pre dicted among non-blacks [Volume Rate/Area] in Serum or Plasma by Creatinine-based formula (MDRD) 87 mL/min/1.73m2 >60 [facility] Glomerular filtration rate/1.73 sq M pre dicted among blacks [Volume Rate/Area] in Serum or Plasma by Creatinine-based formula (MDRD) >60 [facility] ID Date Data Source [id number] 01/02/2020 11:56:59 PM EDT [facility] Name Value Range Interpretation Code Description Data Clarice rce(s) Supporting Document(s) Thyrotropin [Units/volume] in Serum or Plasma 3.100 u[IU]/mL 0.270-4. 200 [facility] ID Date Data Source [id number] 01/02/2020 02:16:00 PM EDT [facility] ([facility] Name Value Range Interpretation Code Description Data Clarice rce(s) Supporting Document(s) Thyroid Stimulating Hormone 3.100 [facility] ([facility]) Troponin 0.00 [facility] ID Date Data Source [id number] 09/07/2019 06:03:48 PM EDT [facility] Name Value Range Interpretation Code Description Data Clarice rce(s) Supporting Document(s) [facility] UKURJe6qXkNTEwBzw5YxWqTdUGFdAK4iwpj6N3C1sYAeW9OktIPch1kfG4XfZ0XdPVXjMYDPCO0GdXHt jb2 [file] XAaEFRRKFJ1yQLlJZCZDJI1iIZCwJQVYiQJML8SJXf 1FQwa9EEvg1IMqlPWGcdGJGNsuQOUtaeZMeZpRYMLnGt1HzTg8IAIo3GVUrJREI0rPJr4pUcx8dKvb0W PkhHIBctKGDAaoPVOT7ATCr8VWDaXK8OSOp6WENlDL9EDTq5GXQfIH1MYRi2ZQSzSL3QYHk0VWVkFL1O AFb94UWmKJ4WJQe62IQiDQ8CGCg63OGxTG9BOPo36O JjICD7554bLo69td+AbNNqdHe9scgeX3rLs+K4VFrpOdIgomNJ7ub0/G4LMx+RdJZwqRb8eccrP0qYt+ Q4LpNMUJjKWn999OIbUOycTUUzcXeYUUHMRsRA3uts43l5phl68eLVKAXdpP0M8Dzi8y8vGYaMHsyIEK tdJpEWhYoIiAf8QRtAXYBofz4wBH1uq2/ft41adWoB 57JlVvIAFoPPSRMvirwSTrFvJnMmwPAYyNNctdlkIldF4g/NngvVA+tUoHQz7AgSNABA3eFs7vR4bnD5 Scs5k+1L1lGiLVFTryIJ4dMC8mXtOo020/nmM96bs+lYF9ckcqL5c6i7WscgpB3jh73h9/3Yma+34DkP EVY9uxl318ru8W1U+a+34DEuU+qUGedNZCe/inbound call center agent/mk [file] Wt7+9u3z//W27wHI9yLU4iH6E27/9otvf/z2V159h1 lXt829Dg/pNS7K9184dUjG6MHDgHJ1zpk2lIuYgs4c2Zb3z/V2VdqJ3pm4owh9LxSC53//1Xe/efvVL7 ///GQrb3yqJ/7km68//WabF7283+uPn77/3xKumoR92r1/8kq60rjDz/g9uJwa4j74/Pzpm4+//vDzH2 oaT1U9H04wscoQruoC+7+++e5X37/9+NOHn/zm6w+f lkNAh6s/+ghxb93nh/f/fP+TQj98+vSz33z+2bfffPhPfuh+RO8f+qd87sbtcM91i+++/+XHr7/56Tdf v31++6cPv/577rLU5/6b98pbxg3A825+fn9/4O1//Ynf/N1/3ahNlPu19pJ09whTr4roz/zwk+9/+MFd 0mt/sH/v7ePX/8d/8rHbdrg/9k8/+/kq64nlY/rDp3 luh11bC2w9mK/fLvvRh1/dN7n19tr+kvGfnNYuenn/zM8+fvj0+e3TfbG++f7tpx++fz/VZ341M6+9P/ 71X/78r3/4659+/y9v//V/cz4179/75//2x9/+4e/efvzXP/z2z2+/+fu3f/8lu2asr/7bt7/8+W38g8 Q/3JlcV82tx/eb45ff/hbjiJp45f+r9qc//cO/8Y/X +6EvSqz2Sb/g65XWgz/SX/i8fvb/IoraKi8m/r235bR0I+k5P63f/2d6zb2CGQ1uan/1YoY1XaWW9+v3 W+iNbhjA5csys+DT7//193/160bls4n9ou78+83Pf/9w9Ycztv9Xro7433Y205tnBK0/fH/iaa6OGu+6 d8Sfm+TXM9G5h9ps6XHada/cTb/+/Z///e/f/vrbf/ /9F7/+/lB+xsM127d+cEj5wNnL5N/++gP+8tPbH/7877//6//72z/+Jz//JLfgn5k7U8ukL8/9wf7x0/ dv//L/vJ/7H/7y5x/+/T1r60Xag359Og/4+R/+8cDpqFxUbvFsO5/+CRiqzsaHa7U+cus/f3DyL+wL4n oovFHT96oo6KT//NGnH31+++3/+P2//fng11DzHNt0 ftcceb//3p9b//Ov//y3P/j0cx2+/e0fv7i+6wv0x3/87e/+7f2548B19K4//uF3X/eK+h//63/87ou+ T3/5y5+++gQ3uWolm/czA35opv5MeZ66X+33v/vvf/5Q380lho/eL0v4/MFHdw+R+ui//th6XXcRe071 2ktdPRP0E3maaf+sJ7l12hdcEn/XA2cdMf70R3iutU Qteqn+5W//2+/f5O0v//rlGvBuJmFtenv7+J4N3Vtl85lqdZ7yOvK2UKdB2DzHl/HpJx8/vd/rn3w25L 7if/j661/78nn5n01BllngKUbp0sv/oyKQ+VfqghYznESoUU4WGH1uy8EkRqM6RZKmd8NzPYxoTCh3gX YrCPnsdgPhy9VybflcT3Zbo1FsMnKzZXRdXsTdTza5 RUTlXyW6bVQvJvDqNPKqK3FeUOJlAnI3PiGoRKFHLL6UECIeziPrKpIqEDM+KkMjYY3aimauIKXud5Sw HCnmNHxoUBEhY5M7zUhaJHRiP1NorB10LXLzU8LctxP6RNI9HLBsAvYxPYSfwHFbOTJgMEH+JpLzMI3k vvkhUSIjs1CcRDqfMUC5jG3xUAaUBOGDUQiQQPweAt Q3s66kcxDDKSGwZFLbRI4GaxBjkUyvybGxgFUtCRO4OaPtBYXmBKmcJFMdTADYDMJhACBfPYAmRZHsH2 StdPemSTwYXJLKWQnXILhoCiPif6K3ZMKqrxXCYF5DVWTWMzckITWKZeMfHinkSZIdSQMeY1EigjLuvG StQRQYIGjpQzsrTPNmuG0efPhlT5DzGUW7u9TmOX7N A5CmXXFnIMOWTCR4o5TuONKasjjlimzwPzTmUNBkLVTpASRvVD5Oei6ueOCcuwFnGZBCBDhdKhceVU1n yGixiyflK7HffTMpKJO+IfGdTE3dlm2+LwNrGJUcShs3UBRnBKhxQJHfBRRzQFHdJ3ajTADtGrFxRITp RwXsRX0Xk9NykCSdJk6ghhYdArhXmCZwEdpyEBHlTW ViOONaYsHKGPRrBMUvZIPjSJM5WDHcVWGuHVacMMMzETPfCMx4TQDbEBDwLM3oJrAiWEQoSoN0RpSlSD KpIGLiumAQKYAfLIM3EAMxKHPvZOPxUNTsNPqsQWVsWNNwSUTyONZ0DJE8WKAtLsJfVJWlVLUoPLGaYA OeZVOysgTKMVBiOJSkQZW5GCNjNKKhRFRlEEtsSMWr MDUaHKzrYKQfXGXjLV5bLzRpINVgXEOuJVrrGFHiUSCexbLVMLUkVAWjHCHhYQCdSFDiJXIjSPczRNVn SDJkDOOrZDKnZXQjZE3xZwOjHLNdUAH3EKReHIKpKOWzbyYLLJOjZVZvZMw3SJTrWZNgUSKzDTnbTRGb DYMkCEJ2BSIzIIEpFM7oPjUbBAAuCVA4MrAwOVCvBN GjdjUJXURpUAWyLDC7EzOsLIIwWRCqRQdnIBScLKCgUMxnNHAvCGSnNT0nDpAwNZKcINEhHRuvASYmEC TnxfKMIEYkRFPrAXVdPgEmCHXeDAPiARpgLWBkFHZjTEKyZIPsAAPeYI6aIdDvBGKmCCR9BFlfVINoVA AgbiAKMDAwMDAwMTczNCAwMDAwMCBuIAowMDAwMDAx FMO6CBKvQMYxVF6yJaLeQEEsIYCaASHnKrZ9XiTrKvMQfWErvNobyux7WAnrC2q0XIEtGJqfWY4oyhLn TWPzRjqkBk4ttUX5HSGlHijHWe8Zn7AwvxC9vnWaDyHkGTCwHvYyEP0N ID Date Data Source [id number] 09/07/2019 01:47:57 PM EDT [facility] Name Value Range Interpretation Code Description Data Clarice rce(s) Supporting Document(s) ED Provider Note [facility] LPJPHd6lOnRQXrHp45/RKIypVCJgg9IzRBjgMSj3DCsbWHWlB3WqJMR6oF0iOGO4LTmFDvBpGnUmEnU0 lbm [file] 9GDQo= ID Date Data Source [id number] 09/06/2019 10:08:42 PM EDT [facility] XR CHEST FRONTAL ONLY [id number] RESULTI nterpreted by:[facility]ba [facility]: Exam: XR Chest, 1 View [...] rce(s) Supporting Document(s) ID Date Data Source [id number] 09/07/2019 02:44:24 AM EDT [facility] Service Cmnt XXX-Imp : Microorganism XXX Cult : Test Not Performed. Respiratory Panel results suggest COVID-19 PCR is not indicated. Contact Microbiology at [phone] if further testing is required. Name Value Range Interpretation Code Description Data Clarice rce(s) Supporting Document(s) ID Date Data Source [id number] 09/07/2019 02:39:14 AM EDT [facility] Service Cmnt XXX-Imp : Microorganism XXX Cult : This respiratory PCR panel detects Influenza A H1, H3 and 2009 H1 viruses, Influenza B virus, Respiratory syncytial virus, Human metapneumovirus, Parainfluenza virus 1, 2, 3 and 4, Adenovirus, Rhinovirus/Enterovirus, Coronavirus HKU1, NL63, OC43 and 229E, Bordetella pertussis, Mycoplasma pneumoniae and Chlamydia pneumoniae. All results are negative except:Ribonucleic acid of Human coronavirus ZS68Jgou assay does not detect novel Coronavirus (SARS-CoV, SARS-CoV-2, MERS-CoV). Name Value Range Interpretation Code Description Data Clarice rce(s) Supporting Document(s) ID Date Data Source [id number] 09/06/2019 10:24:35 PM [facility] Name Value Range Interpretation Code Description Data Clarice rce(s) Supporting Document(s) Leukocytes [#/volume] in Blood by Automated count 10.7 10*3/uL 4-10 [facility] Erythrocytes [#/volume] in Blood by Automated count 6.05 10*6/uL 4.6- 6.1 [facility] Hemoglobin [Mass/volume] in Blood 16.8 g/dL 13.5-18 [facility] Hematocrit [Volume Fraction] of Blood by Automated count 49.8 % 4 1-53 [facility] Erythrocyte mean corpuscular volume [Entitic volume] by Auto mated count 82.4 fL 80-96 [facility] Erythrocyte mean corpuscular hemoglobin [Entitic mass] by Automated count 27.8 pg 27-33 [facility] Erythrocyte mean corpuscular hemoglobin concentration [Mass/volume] by Automated count 33.7 g/dL 32.0-36.0 [facility] Erythrocyte distribution width [Ratio] by Automated count 13.6 % 11.5-14.5 [facility] Platelets [#/volume] in Blood by Automated count 282 10*3/uL 150-400 [facility] Differential cell count method - Blood [facility] Neutrophils/100 leukocytes in Blood by Automated count 74 % [facility] Lymphocytes/100 leukocytes in Blood by Automated count 13 % [facility] Monocytes/100 leukocytes in Blood by Automated count 11 % [facility] Eosinophils/100 leukocytes in Blood by Automated count 1 % [facility] Basophils/100 leukocytes in Blood by Automated count 1 % [facility] Neutrophils [#/volume] in Blood by Automated count 7.93 10*3/uL 1.8-7 .0 [facility] Lymphocytes [#/volume] in Blood by Automated count 1.36 10*3/uL 1.2-4 .0 [facility] Monocytes [#/volume] in Blood by Automated count 1.20 10*3/uL 0-0.8 [facility] Eosinophils [#/volume] in Blood by Automated count 0.09 10*3/uL 0-0.5 [facility] Basophils [#/volume] in Blood by Automated count 0.09 10*3/uL 0-0.2 [facility] Nucleated erythrocytes/100 leukocytes [Ratio] in Blood by Automated count 0 /100{WBCs} 0-0 [facility] ID Date Data Source [id number] 09/06/2019 10:35:52 PM EDT [facility] Name Value Range Interpretation Code Description Data Clarice rce(s) Supporting Document(s) Bicarbonate [Moles/volume] in Serum 26 mmol/L 22-29 [facility] Chloride [Moles/volume] in Serum or Plasma 97 mmol/L 98-107 L [facility] Creatinine [Mass/volume] in Serum or Plasma 1.18 mg/dL 0.70-1.20 [facility] Glucose [Mass/volume] in Serum or Plasma 121 mg/dL 70-140 [facility] Potassium [Moles/volume] in Serum or Plasma 3.5 mmol/L 3.4-5.1 [facility] Sodium [Moles/volume] in Serum or Plasma 137 mmol/L 136-145 [facility] Urea nitrogen [Mass/volume] in Serum or Plasma 15 mg/dL 6-20 [facility] Anion gap 3 in Serum or Plasma 14 mmol/L 8-15 [facility] Osmolality of Serum or Plasma by calculation 286 mosm/kg 275-300 [facility] Creatinine/Urea nitrogen [Mass Ratio] in Serum or Plasma 13 [facility] Calcium [Mass/volume] in Serum or Plasma 9.3 mg/dL 8.6-10.0 [facility] Glomerular filtration rate/1.73 sq M pre dicted among non-blacks [Volume Rate/Area] in Serum or Plasma by Creatinine-based formula (MDRD) 85 mL/min/1.73m2 >60 [facility] Glomerular filtration rate/1.73 sq M pre dicted among blacks [Volume Rate/Area] in Serum or Plasma by Creatinine-based formula (MDRD) >60 [facility] ID Date Data Source [id number] 09/06/2019 10:35:52 PM EDT [facility] Name Value Range Interpretation Code Description Data Clarice rce(s) Supporting Document(s) Troponin T.cardiac [Mass/volume] in Serum or Plasma <0.01 [facility] Procedure Social History Code Duration Value Status Description Data Source(s ) Alcohol intake 01/02/2020 12:00:00 AM EDT Current drinker of al cohol (finding) completed Current drinker of alcohol (finding) [facility] Smoking 01/02/2020 12:00:00 AM EDT Current every day smoker co mpleted Current every day smoker [facility] Alcohol intake 09/06/2019 12:00:00 AM EDT Current drinker of al cohol (finding) completed Current drinker of alcohol (finding) [facility] Smoking 09/06/2019 12:00:00 AM EDT Current every day smoker co mpleted Current every day smoker [facility] Vital Signs ID Date Data Source UNK Name Value Range Interpretation Code Description Data Source(s) Diastolic blood pressure--sitting 95 mm[Hg] 95 mm[Hg] [facility] ([facility]) Omron, large cuff/Ra Systolic blood pressure--sitting 130 mm[Hg] 130 mm[Hg] [facility] ([facility]) Omron, large cuff/Ra Heart rate 63 /min 63 /min [facility] Body mass index (BMI) [Ratio] 33.7 kg/m2 33.7 k g/m2 [facility] ([facility]) Body height 70 [in_i] 70 [in_i] [facility]) 5'10" Body weight 235.00 [lb_av] 235.00 [lb_av] [facility] T ([facility]) ID Date Data Source [id number] 01/05/2020 10:48:04 AM EDT [facility] Name Value Range Interpretation Code Description Data Source(s) WEIGHT RECORDED 230 lb 230 lb [facility] Body height Measured 71 in 71 in [facility] ID Date Data Source [id number] 09/09/2019 09:39:27 AM EDT [facility] Name Value Range Interpretation Code Description Data Source(s) WEIGHT RECORDED 226 lb 226 lb [facility] Body height Measured 71 in 71 in [facility]
[2020-07-24] MEDS ORDERED: NS 1,000 ML IV SCH (20:07)
--- NOTE | 2020-07-24 21:00 | ECGEPIP ---
[facility] - ED Test Date: 2020-07-24 Pat Name: HENNA RADFORD Department: Room: - Gender: Male Credentialing Manager: : [id number] Requested By: Saud Carlson Order Number: [id number] Reading MD: Saud Minor Measurements Intervals [place] Rate: 87 P: 42 DC: 164 QRS: 47 QRSD: 93 T: -31 QT: 342 QTc: 412 Interpretive Statements SINUS RHYTHM NSTTW ABNORMALITY(S) SIMILAR TO 01/10/20 Electronically Signed on 07-24-2020 20:59:48 EST by Saud Minor
[2020-07-24] MEDS ORDERED: ZOFR4TAB16 PO (23:06)
[2020-07-24 23:25] VITALS: BP 158/105
== END 2020-07-24 23:31 | disposition home or self-care (01) ==
LOC: M ED 18:17
DX: R11.2 Nausea with vomiting, unspecified (principal); F41.9 Anxiety disorder, unspecified; F17.200 Nicotine dependence, unspecified, uncomplicated; Z79.899 Other long term (current) drug therapy
CPT/HCPCS: 80048; 80076; 82550; 82553; 83690; 84439; 84443; 84484; 85025; 93005; 93041; 94760; 96360; 96361; 99285; J2405